=== PATIENT | female | born 1990 | race Caucasian/White ===

== ENCOUNTER 2016-06-06 15:57 | Emergency (ER) | payer MEDICAID ==
[2016-06-06 16:17] VITALS: BP 116/76
--- NOTE | 2016-06-06 16:20 | ER Document Report ---
ED Medical Screen (RME) - General Stated Complaint: VAGINAL BLEEDING Time seen by provider: 16:17 Notes: Patient complaints of vaginal bleeding for 3 months straight. Patient states she can feel a lump in her vaginal area and can feel the strings of her IUD. Has not followed up with her [employer]. Patient complains of nausea and vomiting sometimes in the mornings. Denies fever or diarrhea I have greeted and performed a rapid initial assessment of this patient. A comprehensive ED assessment and evaluation of the patient, analysis of test results and completion of the medical decision making process will be conducted by additional ED providers. TRAVEL OUTSIDE OF THE [place] IN LAST 30 DAYS: No - Related Data Allergies/Adverse Reactions: No Known Allergies Allergy (Verified 06/06/16 16:19) Past Medical History Past Surgical History: Reports: Hx Dilation and Curettage, Hx Gynecologic Surgery - d&c - Immunizations Immunizations up to date: Yes Hx Diphtheria, Pertussis, Tetanus Vaccination: Yes Physical Exam - Vital signs Vitals: Temp Pulse Resp BP Pulse Ox 97.6 F 78 20 116/76 100 06/06/16 16:15 06/06/16 16:15 06/06/16 16:15 06/06/16 16:15 06/06/16 16:15 Course - Vital Signs Vital signs: Temp Pulse Resp BP Pulse Ox 97.6 F 78 20 116/76 100 06/06/16 16:15 06/06/16 16:15 06/06/16 16:15 06/06/16 16:15 06/06/16 16:15
[2016-06-06 16:48] LABS: ABSOLUTE EOSINOPHILS # (AUTO) 0.1 10^3/uL (0.0-0.6); ABSOLUTE MONOCYTES (AUTO) 0.5 10^3/uL (0.1-1.4); ABSOLUTE NEUT (AUTO) 3.8 10^3/uL (1.7-8.2); BASOPHILS % (AUTO) 0.4 % (0-2); EOSINOPHILS % (AUTO) 2.2 % (0-6); HEMATOCRIT 34.1 % (36.0-47.0); HEMOGLOBIN 11.9 g/dL (12.0-15.5); HGB HCT DIFFERENCE 1.6; LYMPHOCYTES % (AUTO) 30.4 % (13-45); MEAN CORPUSCULAR HEMOGLOBIN 32.9 pg (27.0-33.4); MEAN CORPUSCULAR HGB CONC 34.9 g/dL (32.0-36.0); MEAN CORPUSCULAR VOLUME 94 fl (80-97); MONOCYTES % (AUTO) 7.9 % (3-13); RED BLOOD COUNT 3.62 10^6/uL (3.72-5.28); RED CELL DISTRIBUTION WIDTH 12.5 % (11.5-14.0); SEGMENTED NEUTROPHILS % (AUTO) 59.1 % (42-78); WHITE BLOOD COUNT 6.4 10^3/uL (4.0-10.5)
[2016-06-06 16:59] LABS: APPEARANCE,URINE CLEAR; BILIRUBIN,URINE NEGATIVE (NEGATIVE); GLUCOSE, URINE NEGATIVE (NEGATIVE); KETONES,URINE NEGATIVE (NEGATIVE); LEUKOCYTE ESTERASE,URINE TRACE (NEGATIVE); NITRITE,URINE NEGATIVE (NEGATIVE); PROTEIN,URINE NEGATIVE (NEGATIVE); URINE SPECIFIC GRAVITY 1.008; UROBILINOGEN,URINE NEGATIVE mg/dL (<2.0)
[2016-06-06 17:05] LABS: ALANINE AMINOTRANSFERASE 15 U/L (9-52); ALBUMIN 4.4 g/dL (3.5-5.0); ALKALINE PHOSPHATASE 55 U/L (38-126); ANION GAP 10 (5-19); ASPARTATE AMINO TRANSFERASE 18 U/L (14-36); BILIRUBIN,TOTAL 0.4 mg/dL (0.2-1.3); BLOOD UREA NITROGEN 7 mg/dL (7-20); CALCIUM 9.5 mg/dL (8.4-10.2); CARBON DIOXIDE 26 mmol/L (22-30); CHLORIDE 106 mmol/L (98-107); CREATININE RESULT 0.68 mg/dL (0.52-1.25); GLUCOSE 87 mg/dL (75-110); POTASSIUM 4.1 mmol/L (3.6-5.0); SODIUM 141.7 mmol/L (137-145)
--- NOTE | 2016-06-06 18:32 | ER Document Report ---
ED GI/ - General Mode of Arrival: Ambulatory Information source: Patient TRAVEL OUTSIDE OF THE [place] IN LAST 30 DAYS: No <YUMIKO ADAMS - Last Filed: 06/06/16 22:06> <HECTOR KEMP - Last Filed: 06/06/16 22:44> - General Chief Complaint: Vaginal Bleeding Stated Complaint: VAGINAL BLEEDING Notes: Patient is a 26 year old female that presents to the emergency department today with complaints of an IUD complaint with vaginal bleeding according to triage paperwork. Upon entry into room the patient is sleeping and uncooperative with history. (YUMIKO ADAMS) - Related Data Allergies/Adverse Reactions: No Known Allergies Allergy (Verified 06/06/16 16:19) Past Medical History - General Information source: [facility], [facility] Records - Social History Smoking Status: Current Every Day Smoker Cigarette use (# per day): Yes Chew tobacco use (# tins/day): No Frequency of alcohol use: None Drug Abuse: None Lives with: Family Family History: Reviewed & Not Pertinent Patient has suicidal ideation: No Patient has homicidal ideation: No - Medical History Medical History: Negative Past Surgical History: Reports: Hx Dilation and Curettage, Hx Gynecologic Surgery - d&c - Immunizations Immunizations up to date: Yes Hx Diphtheria, Pertussis, Tetanus Vaccination: Yes <YUMIKO ADAMS - Last Filed: 06/06/16 22:06> Review of Systems - Review of Systems -: Yes ROS unobtainable due to patient's medical condition - uncooperative, falls asleep <YUMIKO ADAMS - Last Filed: 06/06/16 22:06> Physical Exam - Vital signs Interpretation: Normal - General In distress: None - HEENT Head: Normocephalic, Atraumatic - Extremities General upper extremity: Normal ROM General lower extremity: Normal ROM, Normal weight bearing <HECTOR KEMP - Last Filed: 06/06/16 22:44> - Vital signs Vitals: Temp Pulse Resp BP Pulse Ox 97.6 F 78 20 116/76 100 06/06/16 16:15 06/06/16 16:15 06/06/16 16:15 06/06/16 16:15 06/06/16 16:15 Course - Laboratory Result Diagrams: 06/06/16 16:30 06/06/16 16:30 <YUMIKO ADAMS - Last Filed: 06/06/16 22:06> - Laboratory Result Diagrams: 06/06/16 16:30 06/06/16 16:30 <HECTOR KEMP - Last Filed: 06/06/16 22:44> - Re-evaluation Re-evalutation: 06/06/16 Patient is a 18-year-old female who presented to the emergency department for vaginal bleeding. Patient was unable to give history. Went to the room twice to see her. Attempted to have a conversation with her multiple times in the patient did not want to wake up. Patient then told nurse that she just wanted to be discharged. This is after she did refuse ultrasound to look at IUD placement. Discharge instructions were preprinted for vaginal bleeding. Patient then wanted to see me again. Went to talk to patient who tells me that she wants to see a different doctor. Inform the patient that there is not another physician available at this time. Patient began swearing and yelling, which she has been doing to the staff for the last hour. Patient's family attempted to calm her down in the room patient is yelling and swearing. Explained to patient that I would not be standing there and continued to be yelled that. Patient was escorted to the waiting room by security after she would not stop yelling and cursing. (HECTOR KEMP) - Vital Signs Vital signs: Temp Pulse Resp BP Pulse Ox 97.6 F 78 20 116/76 100 06/06/16 16:15 06/06/16 16:15 06/06/16 16:15 06/06/16 16:15 06/06/16 16:15 - Laboratory Laboratory results interpreted by me: 06/06/16 06/06/16 16:30 16:30 RBC 3.62 L Hgb 11.9 L Hct 34.1 L Ur Leukocyte Esterase TRACE H Discharge <YUMIKO ADAMS - Last Filed: 06/06/16 22:06> <HECTOR KEMP - Last Filed: 06/06/16 22:44> - Discharge Clinical Impression: Vaginal bleeding Condition: Stable Disposition: HOME, SELF-CARE Additional Instructions: Please follow-up with your doctor regarding your IUD. Referrals: MARK RAMSEY PA-C [Primary Care Provider] - Follow up as needed Scribe Attestation: 06/06/16 22:43 I personally performed the services described in the documentation, reviewed and edited the documentation which was dictated to the scribe in my presence, and it accurately records my words and actions. (HECTOR KEMP) Scribe Documentation - Scribe Written by Melissa:: Melissa Arroyo, 06/06/2016 2208 acting as scribe for :: Andrew <YUMIKO ADAMS - Last Filed: 06/06/16 22:06>
--- NOTE | 2016-06-06 18:47 | ER Document Report ---
ED GI/ - General Chief Complaint: Vaginal Bleeding Stated Complaint: VAGINAL BLEEDING TRAVEL OUTSIDE OF THE [place] IN LAST 30 DAYS: No - Related Data Allergies/Adverse Reactions: No Known Allergies Allergy (Verified 06/06/16 16:19) Past Medical History - General Last Menstrual Period: >5 years - Social History Smoking Status: Current Every Day Smoker Chew tobacco use (# tins/day): No Frequency of alcohol use: None Drug Abuse: None Family History: Reviewed & Not Pertinent Patient has suicidal ideation: No Patient has homicidal ideation: No Renal/ Medical History: Denies: Hx Peritoneal Dialysis Past Surgical History: Reports: Hx Dilation and Curettage, Hx Gynecologic Surgery - d&c - Immunizations Immunizations up to date: Yes Hx Diphtheria, Pertussis, Tetanus Vaccination: Yes Physical Exam - Vital signs Vitals: Temp Pulse Resp BP Pulse Ox 97.6 F 78 20 116/76 100 06/06/16 16:15 06/06/16 16:15 06/06/16 16:15 06/06/16 16:15 06/06/16 16:15 Course - Vital Signs Vital signs: Temp Pulse Resp BP Pulse Ox 97.6 F 78 20 116/76 100 06/06/16 16:15 06/06/16 16:15 06/06/16 16:15 06/06/16 16:15 06/06/16 16:15 - Laboratory Result Diagrams: 06/06/16 16:30 06/06/16 16:30 Laboratory results interpreted by me: 06/06/16 06/06/16 16:30 16:30 RBC 3.62 L Hgb 11.9 L Hct 34.1 L Ur Leukocyte Esterase TRACE H Discharge - Discharge Clinical Impression: Vaginal bleeding Condition: Stable Disposition: HOME, SELF-CARE Additional Instructions: Please follow-up with your doctor regarding her IUD. Referrals: MARK RAMSEY PA-C [Primary Care Provider] - Follow up as needed
== END 2016-06-06 19:40 | disposition home or self-care (01) ==
LOC: ER 15:57
DX: N93.8 Other specified abnormal uterine and vaginal bleeding (principal); F17.210 Nicotine dependence, cigarettes, uncomplicated; Z97.5 Presence of (intrauterine) contraceptive device
CPT/HCPCS: 36415; 80053; 81001; 84702; 85025; 99284

== ENCOUNTER 2018-03-15 16:48 | Emergency (ER) | payer SELFPAY ==
[2018-03-15] MEDS ORDERED: KETOROLAC TROMETHAMINE 60 MG/2 ML SDV IM ONE (17:29)
[2018-03-15 18:13] LABS: APPEARANCE,URINE CLEAR; BILIRUBIN,URINE NEGATIVE (NEGATIVE); COLOR,URINE YELLOW; GLUCOSE, URINE NEGATIVE (NEGATIVE); KETONES,URINE NEGATIVE (NEGATIVE); LEUKOCYTE ESTERASE,URINE LARGE (NEGATIVE); NITRITE,URINE NEGATIVE (NEGATIVE); PROTEIN,URINE NEGATIVE (NEGATIVE); UROBILINOGEN,URINE NEGATIVE mg/dL (<2.0)
[2018-03-15] MEDS ORDERED: SULFAMETHOXAZOLE/TRIMETHOPRIM 800-160 MG TABLET PO ONE (18:19)
--- NOTE | 2018-03-15 18:26 | ER Document Report ---
ED General - General Chief Complaint: Back Pain Stated Complaint: URINARY PAIN Time Seen by Provider: 03/15/18 17:26 TRAVEL OUTSIDE OF THE [place] IN LAST 30 DAYS: No - HPI Patient complains to provider of: Back pain dysuria Notes: Patient coming in for suprapubic abdominal pain along with dysuria. Patient states she thinks he may have a urinary tract infection. Patient denies any fever chills nausea vomiting diarrhea. Patient denies any vaginal discharge. - Related Data Allergies/Adverse Reactions: No Known Allergies Allergy (Verified 03/15/18 16:49) Past Medical History - Social History Smoking Status: Current Every Day Smoker Frequency of alcohol use: None Drug Abuse: Marijuana Family History: Reviewed & Not Pertinent Patient has suicidal ideation: No Patient has homicidal ideation: No Renal/ Medical History: Denies: Hx Peritoneal Dialysis Past Surgical History: Reports: Hx Dilation and Curettage, Hx Gynecologic Surgery - d&c - Immunizations Immunizations up to date: Yes Hx Diphtheria, Pertussis, Tetanus Vaccination: Yes Review of Systems - Review of Systems Constitutional: No symptoms reported EENT: No symptoms reported Cardiovascular: No symptoms reported Respiratory: No symptoms reported Gastrointestinal: Abdominal pain Genitourinary: Dysuria Female Genitourinary: No symptoms reported Musculoskeletal: No symptoms reported Skin: No symptoms reported Hematologic/Lymphatic: No symptoms reported Neurological/Psychological: No symptoms reported -: Yes All other systems reviewed and negative Physical Exam - Vital signs Vitals: Temp Pulse BP Pulse Ox 99.3 F 103 H 118/68 97 03/15/18 17:05 03/15/18 17:05 03/15/18 17:05 03/15/18 17:05 Interpretation: Normal - General General appearance: Appears well, Alert - HEENT Head: Normocephalic, Atraumatic Eyes: Normal Pupils: PERRL - Respiratory Respiratory status: No respiratory distress Chest status: Nontender Breath sounds: Normal Chest palpation: Normal - Cardiovascular Rhythm: Regular Heart sounds: Normal auscultation Murmur: No - Abdominal Inspection: Normal Distension: No distension Bowel sounds: Normal Tenderness: Nontender Organomegaly: No organomegaly - Back Back: Normal, Nontender - Extremities General upper extremity: Normal inspection, Nontender, Normal color, Normal ROM , Normal temperature General lower extremity: Normal inspection, Nontender, Normal color, Normal ROM , Normal temperature, Normal weight bearing. No: Leia's sign - Neurological Neuro grossly intact: Yes Cognition: Normal Orientation: AAOx4 [place] Coma Scale Eye Opening: Spontaneous Joahnna Coma Scale Verbal: Oriented [place] Coma Scale Motor: Obeys Commands [place] Coma Scale Total: 15 Speech: Normal Motor strength normal: LUE, RUE, LLE, RLE Sensory: Normal - Psychological Associated symptoms: Normal affect, Normal mood - Skin Skin Temperature: Warm Skin Moisture: Dry Skin Color: Normal Course - Re-evaluation Re-evalutation: 03/15/18 21:08 Patient with uncomplicated UTI. Urine analysis will be sent for culture patient will be started on Bactrim. - Vital Signs Vital signs: Temp Pulse Resp BP Pulse Ox 98.8 F 91 110/68 99 03/15/18 19:00 03/15/18 19:00 03/15/18 19:00 03/15/18 19:00 - Laboratory Laboratory results interpreted by me: 03/15/18 17:30 Urine Blood MODERATE H Ur Leukocyte Esterase LARGE H Discharge - Discharge Clinical Impression: UTI (urinary tract infection) Qualifiers: Urinary tract infection type: acute cystitis Hematuria presence: with hematuria Qualified Code(s): N30.01 - Acute cystitis with hematuria Condition: Good Disposition: HOME, SELF-CARE Instructions: Ice Packs ([facility]), Low Back Pain ([facility]), Trimethoprim-Sulfa ([facility]), Urinary Tract Infection ([facility]) Additional Instructions: Your urinalysis does show signs of urinary tract infection. I would recommend taking the antibiotic as prescribed. Return to ER symptoms worsen follow-up with your primary care physician. Tylenol Motrin for pain control along with the Pyridium prescribed. Prescriptions: Ibuprofen [Motrin 600 mg Tablet] 600 mg PO Q8HP PRN #21 tablet PRN Reason: Phenazopyridine HCl [Pyridium 200 mg Tablet] 200 mg PO TID #20 tablet Sulfamethoxazole/Trimethoprim [Bactrim Ds Tablet] 1 each PO BID #20 tablet Forms: Return to Work Referrals: MARK RAMSEY PA-C [Primary Care Provider] - Follow up as needed
[2018-03-15 19:04] VITALS: BP 110/68
== END 2018-03-15 19:05 | disposition home or self-care (01) ==
LOC: ER 16:48
DX: N30.01 Acute cystitis with hematuria (principal); M54.9 Dorsalgia, unspecified; F17.200 Nicotine dependence, unspecified, uncomplicated
CPT/HCPCS: 99283; 96372; 87086; 81025; 87088; 81001; 87186; J1885

== ENCOUNTER 2020-01-26 13:34 | Emergency (ER) | payer MEDICAID ==
--- NOTE | 2020-01-26 13:55 | ER Document Report ---
ED Medical Screen (RME) - General Chief Complaint: Abdominal Pain Stated Complaint: ABDOMINAL PAIN Time Seen by Provider: 01/26/20 13:51 Primary Care Provider: ERICH TRUJILLO MD [Primary Care Provider] - Follow up as needed Mode of Arrival: Ambulatory Information source: Patient Notes: 29-year-old female patient presents emergency department chief complaint of no bowel movement for 2 weeks. She reports she has tried milk of magnesia, magnesium citrate, MiraLAX and 2 enemas. She states she has had no results. She reports she has some blood from her rectum. Denies any history of GI bleeds or hemorrhoids that she is aware of. Denies any fever, chills, nausea, vomiting. Reports she has occasional constipation but never anything like this. No history of any abdominal surgeries. Abdomen firm, mildly tender. I have greeted and performed a rapid initial assessment of this patient. A comprehensive ED assessment and evaluation of the patient, analysis of test results and completion of the medical decision making process will be conducted by additional ED providers. I have specifically instructed the patient or family members with the patient to immediately return to any nursing staff should anything change in the patient's condition or with their chief complaint. TRAVEL OUTSIDE OF THE [place] IN LAST 30 DAYS: No - Related Data Allergies/Adverse Reactions: No Known Allergies Allergy (Verified 03/15/18 16:49) Past Medical History Renal/ Medical History: Denies: Hx Peritoneal Dialysis Past Surgical History: Reports: Hx Dilation and Curettage, Hx Gynecologic Surgery - d&c - Immunizations Immunizations up to date: Yes Hx Diphtheria, Pertussis, Tetanus Vaccination: Yes Physical Exam - Vital signs Vitals: Temp Pulse Resp BP Pulse Ox 98.1 F 106 H 16 121/84 100 01/26/20 13:40 01/26/20 13:40 01/26/20 13:40 01/26/20 13:40 01/26/20 13:40 Course - Vital Signs Vital signs: Temp Pulse Resp BP Pulse Ox 98.1 F 106 H 16 121/84 100 01/26/20 13:40 01/26/20 13:40 01/26/20 13:40 01/26/20 13:40 01/26/20 13:40 Doctor's Discharge - Discharge Referrals: ERICH TRUJILLO MD [Primary Care Provider] - Follow up as needed
--- NOTE | 2020-01-26 14:20 | RADIOLOGY REPORT (SQ) ---
EXAM DESCRIPTION: KUB/ABDOMEN (SINGLE VIEW) IMAGES COMPLETED DATE/TIME: 01/26/2020 2:09 pm REASON FOR STUDY: no BM x2 weeks COMPARISON: None. NUMBER OF VIEWS: One view. TECHNIQUE: Supine radiographic image of the abdomen acquired. LIMITATIONS: None. FINDINGS: BOWEL GAS PATTERN: Normal bowel gas pattern. No dilated loops. CALCIFICATIONS: No suspicious calcifications. SOFT TISSUES: No gross mass or suggestion of organomegaly. HARDWARE: IUD. BONES: No acute fracture. No worrisome bone lesions. OTHER: No other significant finding. IMPRESSION: NO RADIOGRAPHIC EVIDENCE FOR ACUTE ABDOMINAL DISEASE. TECHNICAL DOCUMENTATION: JOB ID: [id number] 2010 [employer]- All Rights Reserved Reading location - IP/workstation name: [email or web address]
[2020-01-26] MEDS ORDERED: MAGNESIUM CITRATE 296 ML BOTTLE PO ONE (15:47)
--- NOTE | 2020-01-26 15:54 | ER Document Report ---
ED GI/ - General Chief Complaint: Abdominal Pain Stated Complaint: ABDOMINAL PAIN Time Seen by Provider: 01/26/20 13:51 Primary Care Provider: ERICH TRUJILLO MD [Primary Care Provider] - Follow up as needed Mode of Arrival: Ambulatory Notes: 29-year-old woman presents to the emergency department with a history of obstipation for the past 10 days. She notes that she has tried kwok-syv-nzeoexr laxatives with no results. She is also given herself an enema on 2 separate occasions with no results. She has the urge to have a bowel movement however is unable to go. She is taking Percocet on a chronic basis, she has chronic pain management. TRAVEL OUTSIDE OF THE [place] IN LAST 30 DAYS: No - Related Data Allergies/Adverse Reactions: No Known Allergies Allergy (Verified 03/15/18 16:49) Past Medical History - General Information source: Patient - Social History Smoking Status: Unknown if Ever Smoked Family History: Reviewed & Not Pertinent Renal/ Medical History: Denies: Hx Peritoneal Dialysis Past Surgical History: Reports: Hx Dilation and Curettage, Hx Gynecologic Surgery - d&c - Immunizations Immunizations up to date: Yes Hx Diphtheria, Pertussis, Tetanus Vaccination: Yes Review of Systems - Review of Systems Notes: Constitutional: Negative for fever. HENT: Negative for sore throat. Eyes: Negative for visual changes. Cardiovascular: Negative for chest pain. Respiratory: Negative for shortness of breath. Gastrointestinal: See HPI Genitourinary: Negative for dysuria. Musculoskeletal: Negative for back pain. Skin: Negative for rash. Neurological: Negative for headaches, weakness or numbness. 10 point ROS negative except as marked above and in HPI. Physical Exam - Vital signs Vitals: Temp Pulse Resp BP Pulse Ox 98.1 F 106 H 16 121/84 100 01/26/20 13:40 01/26/20 13:40 01/26/20 13:40 01/26/20 13:40 01/26/20 13:40 - Notes Notes: PHYSICAL EXAMINATION: Physical Exam: General: Well-nourished well-developed 29-year-old female in no acute distress HEENT: NC/AT, pupils equal round and reactive to light, MM moist,nares clear, oropharynx clear, airway patent Neck: supple, no adenopathy, no masses. Good range of motion Lungs: clear, no wheezing, no rales no rhonchi CVS: Regular rate and rhythm no murmur gallop or rub Abdomen: Soft, active, nontender, no masses, no hepatosplenomegaly Ext: No edema, clubbing or cyanosis. Neuro: Alert and responsive, moving all 4 extremities on command, cranial nerves intact, no focal findings Skin: Intact no open lesions, no rash PSYCH: Normal mood, normal affect. Course - Re-evaluation Re-evalutation: 01/26/20 15:50 Patient is stable, - Vital Signs Vital signs: Temp Pulse Resp BP Pulse Ox 98.1 F 88 16 130/75 H 100 01/26/20 16:20 01/26/20 16:20 01/26/20 16:20 01/26/20 16:20 01/26/20 16:20 - Diagnostic Test Radiology reviewed: Image reviewed, Reports reviewed Radiology results interpreted by me: 01/26/20 15:52 KUB X-Ray 01/26/20 13:54 IMPRESSION: NO RADIOGRAPHIC EVIDENCE FOR ACUTE ABDOMINAL DISEASE. Discharge - Discharge Clinical Impression: Therapeutic opioid-induced constipation (OIC) Condition: Good Disposition: HOME, SELF-CARE Instructions: Constipation ([facility]) Additional Instructions: You were seen in the emergency department with opioid-induced constipation. Please take a stool softener twice daily, uses a MiraLAX twice daily. Push fluids, increase fiber and follow-up with your doctors as needed. HOME CARE INSTRUCTIONS & INFORMATION: Thank you for choosing us for your medical needs. We hope you're satisfied with the care you received. After you leave, you must properly care for your problem and, at the same time, observe its progress. Any condition can change. Some illnesses can change rapidly over hours or days. If your condition worsens, return to the Emergency Department or see your physician promptly. ABOUT YOUR X-RAYS AND EKG'S: If you had an EKG or X-rays taken, they have been read by the Emergency Physician. The X-rays and EKG's will also be read by a Radiologist or Home Health Clinical Supervisor within 24 hours. If discrepancies are noted, you will be notified by telephone. Please be certain the ED has a correct telephone number & address where you can be reached. Also, realize that some fractures or abnormalities do not show up on initial X-rays. If your symptoms continue, see your physician. ABOUT YOUR LABORATORY TEST: If you had laboratory tests, the results have been reviewed by the Emergency Physician. Some test results (for example cultures) may not be available for several days. You will be contacted if any test result shows you need additional treatment. Please be certain the ED has a correct telephone number and address where you can be reached. ABOUT YOUR MEDICATIONS: You will receive instructions on how to take your medicine on the prescription label you receive. Additional information may be provided by the Pharmacy. If you have questions afterwards, call the ED for clarification or further instructions. Some prescribed medications may cause drowsiness. Do not perform tasks such as driving a car or operating machinery without consulting your Pharmacist. If you feel you need a refill of pain medication, your condition will need re-evaluation. Please do not call for a refill of any medication. ABOUT YOUR SIGNATURE: Signature of this document acknowledges to followin. Understanding that you received emergency treatment and that you may be released before al medical problems are known or treated. Please be certain the ED has a correct phone number & address where you can be reached. 2. Acknowledgement that you will arrange for follow-up care as recommended. 3. Authorization for the Emergency Physician to provide information to your follow-up Physician in order to maximize your care. AT ANY TIME, IF YOUR SYMPTOMS CHANGE SIGNIFICANTLY OR WORSEN OR YOU DEVELOP NEW SYMPTOMS, RETURN TO THE EMERGENCY DEPARTMENT IMMEDIATELY FOR RE-EVALUATION. OUR GOAL IS TO PROVIDE EXCELLENT MEDICAL CARE! WE HOPE THAT WE HAVE MET YOUR EXPECTATIONS DURING YOUR EMERGENCY DEPARTMENT VISIT AND THAT YOU FEEL YOU HAVE RECEIVED EXCELLENT CARE! Prescriptions: Docusate Sodium [Colace 100 mg Capsule] 100 mg PO BID #30 capsule Polyethylene Glycol 3350 [Miralax] 1 cap PO BID PRN #[id number] powder PRN Reason: Referrals: ERICH TRUJILLO MD [Primary Care Provider] - Follow up as needed
[2020-01-26 16:42] VITALS: BP 130/75
== END 2020-01-26 16:20 | disposition home or self-care (01) ==
LOC: ER 13:34
DX: K59.03 Drug induced constipation (principal); T40.2X5A Adverse effect of other opioids, initial encounter; G89.29 Other chronic pain; Z79.891 Long term (current) use of opiate analgesic
CPT/HCPCS: 99283; 74018; J3490

== ENCOUNTER 2020-01-31 18:30 | Inpatient (IN) | payer MEDICAID ==
[2020-01-31] MEDS ORDERED: ACETAMINOPHEN 325 MG TABLET PO ONE (18:52)
[2020-01-31] MEDS ORDERED: NORMAL SALINE 1000 ML 1,000 ML IV ONE (18:53)
--- NOTE | 2020-01-31 19:43 | RADIOLOGY REPORT (SQ) ---
EXAM DESCRIPTION: CHEST 2 VIEWS IMAGES COMPLETED DATE/TIME: 01/31/2020 7:14 pm REASON FOR STUDY: Sepsis protocol COMPARISON: 04/21/2015 EXAM PARAMETERS: NUMBER OF VIEWS: two views TECHNIQUE: Digital Frontal and Lateral radiographic views of the chest acquired. RADIATION DOSE: NA LIMITATIONS: none FINDINGS: LUNGS AND PLEURA: No opacities, masses or pneumothorax. No pleural effusion. MEDIASTINUM AND HILAR STRUCTURES: No masses or contour abnormalities. HEART AND VASCULAR STRUCTURES: Heart normal size. No evidence for failure. BONES: No acute findings. HARDWARE: None in the chest. OTHER: No other significant finding. IMPRESSION: 1. No significant interval changes since the prior examination dated 04/21/2015. No acu te findings. TECHNICAL DOCUMENTATION: JOB ID: [id number] 2010 [employer]- All Rights Reserved Reading location - IP/workstation name: [email or web address]
[2020-01-31] MEDS ORDERED: CEFTRIAXONE 1 GM/D5W RTU 1 GM/50 ML RTUPB IV ONE (20:03)
--- NOTE | 2020-01-31 20:03 | ER Document Report ---
ED Medical Screen (RME) - General Chief Complaint: Fever Stated Complaint: ABDOMINAL PAIN Time Seen by Provider: 01/31/20 18:49 Primary Care Provider: ERICH TRUJILLO MD [Primary Care Provider] - Follow up as needed Mode of Arrival: Wheelchair Information source: Patient Notes: 19-year-old female presents to ED for complaint of severe left-sided pelvic pain. She states this pain has been going on since the beginning of January. She states she had a Pap smear with urine and swabs and everything was negative at that time. She states the pain is not gotten any better and is gotten extremely worse over the last week. She states the pain is a 5 out of 5 at this time. She does have a blood pressure 129/85 temperature of 101.9 pulse of 134 O2 sat of 98. She states she smokes a pack a day does not drink or use any illicit drugs. She states she is on oxycodone 08/06/2024 for the pain. Have ordered a septic work-up due to the fever and pulse. I have spoken with ultrasound and ordered a transvaginal ultrasound for the left pelvic pain with Doppler. I have greeted and performed a rapid initial assessment of this patient. A comprehensive ED assessment and evaluation of the patient, analysis of test results and completion of medical decision making process will be conducted by an additional ED providers. TRAVEL OUTSIDE OF THE [place] IN LAST 30 DAYS: No - Related Data Allergies/Adverse Reactions: No Known Allergies Allergy (Verified 03/15/18 16:49) Past Medical History Renal/ Medical History: Denies: Hx Peritoneal Dialysis Past Surgical History: Reports: Hx Dilation and Curettage, Hx Gynecologic Surgery - d&c - Immunizations Immunizations up to date: Yes Hx Diphtheria, Pertussis, Tetanus Vaccination: Yes Physical Exam - Vital signs Vitals: Temp Pulse Resp BP Pulse Ox 101.9 F H 134 H 20 129/85 H 98 01/31/20 18:57 01/31/20 18:57 01/31/20 18:57 01/31/20 18:57 01/31/20 18:57 Course - Vital Signs Vital signs: Temp Pulse Resp BP Pulse Ox 101.9 F H 134 H 20 129/85 H 98 01/31/20 18:57 01/31/20 18:57 01/31/20 18:57 01/31/20 18:57 01/31/20 18:57 Doctor's Discharge - Discharge Referrals: ERICH TRUJILLO MD [Primary Care Provider] - Follow up as needed
[2020-01-31] MEDS ORDERED: KETOROLAC TROMETHAMINE INJ/PF 30 MG/1 ML SDV IV ONE (20:06)
--- NOTE | 2020-01-31 20:24 | RADIOLOGY REPORT (SQ) ---
EXAM DESCRIPTION: US PELVIS TRANSVAGINAL COMPLETED DATE/TME: 01/31/2020 18:55 CLINICAL HISTORY: left pelvic pain febrile COMPARISON: None. FINDINGS: Transvaginal images of the pelvis were submitted. There is an IUD within the uterus. There is no discrete mass within the uterus. There is a right adnexal complex mass measuring 11.3 x 7.5 cm. The left ovary measures 6.2 x 4.7 cm. There is no sonographic evidence of ovarian torsion. IMPRESSION: Right complex adnexal mass could be secondary to a tubo-ovarian abscess. Other etiologies are not excluded. Recommend follow-up.
--- NOTE | 2020-01-31 20:27 | ER Document Report ---
ED GI/ - General Chief Complaint: Abdominal Pain Stated Complaint: ABDOMINAL PAIN Time Seen by Provider: 01/31/20 18:49 Mode of Arrival: Wheelchair Notes: Patient is a 29-year-old female that comes emergency department for chief complaint of left-sided pelvic pain, fever, chills. She states that she has had some pain in the area for approximately 3 weeks now, she states that this is progressively worsened and over the course of this afternoon it became severe. She denies vomiting, flank pain, dysuria, vaginal discharge, vaginal bleeding. She was noted to have a fever in triage of 101.9. She is sexually active with her significant other. She has an IUD. Past medical history of D&C and chronic back pain on oxycodone following with pain management, denies recreational drugs, denies medical history otherwise. TRAVEL OUTSIDE OF THE [place] IN LAST 30 DAYS: No - Related Data Allergies/Adverse Reactions: No Known Allergies Allergy (Verified 03/15/18 16:49) Past Medical History - General Information source: Patient - Social History Smoking Status: Current Every Day Smoker Frequency of alcohol use: None Drug Abuse: None Lives with: Family Family History: Reviewed & Not Pertinent Renal/ Medical History: Denies: Hx Peritoneal Dialysis Past Surgical History: Reports: Hx Dilation and Curettage, Hx Gynecologic Surgery - d&c - Immunizations Immunizations up to date: Yes Hx Diphtheria, Pertussis, Tetanus Vaccination: Yes Review of Systems - Review of Systems Constitutional: See HPI EENT: No symptoms reported Cardiovascular: No symptoms reported Respiratory: No symptoms reported Gastrointestinal: See HPI Genitourinary: See HPI Female Genitourinary: See HPI Musculoskeletal: No symptoms reported Skin: No symptoms reported Hematologic/Lymphatic: No symptoms reported Neurological/Psychological: No symptoms reported Physical Exam - Vital signs Vitals: Temp Pulse Resp BP Pulse Ox 101.9 F H 133 H 24 H 129/85 H 97 01/31/20 18:47 01/31/20 18:47 01/31/20 18:47 01/31/20 18:47 01/31/20 18:47 - Notes Notes: GENERAL: Alert but ill-appearing. Appears to be uncomfortable HEAD: Normocephalic, atraumatic. EYES: Pupils equal, round, and reactive to light. Extraocular movements intact. ENT: Oral mucosa moist, tongue midline. Oropharynx unremarkable. Airway patent. LUNGS: Clear to auscultation bilaterally, no wheezes, rales, or rhonchi. No respiratory distress. Non-tender chest wall. HEART: Tachycardic, normal rhythm, no murmur ABDOMEN: Very tender in the generalized lower abdomen/pelvic region with some guarding. Mid upper abdomen is nontender. Bowel sounds present throughout. GENITOURINARY: External exam unremarkable, speculum exam showing purulent discharge from the cervix with significant cervical motion tenderness noted. No bleeding. Exam performed with Galdino RN at bedside. EXTREMITIES: Moves all 4 extremities spontaneously. No edema, normal radial and dorsalis pedis pulses bilaterally. No cyanosis. BACK: no cervical, thoracic, lumbar midline tenderness. No saddle anesthesia, normal distal neurovascular exam. Moves all extremities in full range of motion. NEUROLOGICAL: Alert and oriented x3. Normal speech. Cranial nerves II through XII grossly intact. Strength 5/5 in all extremities. PSYCH: Normal affect, normal mood. SKIN: Slightly pale Course - Re-evaluation Re-evalutation: 01/31/20 On my evaluation patient is ill-appearing, tachycardic, febrile, has a lot of tenderness in the entire pelvic region on exam. On pelvic exam she has purulent discharge from the cervix, no bleeding, no other concerning finding. Work-up pending. Patient has already been initiated on Rocephin and Flagyl from triage orders. Patient is receiving IV fluids and Tylenol. Patient was given pain medication to help her undergo the pelvic exam. On evaluation patient is more comfortable, tachycardia is improved, she is not hypotensive, she is calm. CBC shows leukocytosis at 21,000 with elevation of neutrophils but no bandemia. Chemistry nonspecific. test is negative. Urine is nitrite positive but otherwise unremarkable. Gonorrhea and Chlamydia are pending, 4+ white blood cells and 4+ bacteria on wet mount. Chest x-ray unremarkable. Ultrasound showing approximate 11 x 7.5 cm mass which could be a tubo-ovarian abscess. Based on patient's clinical presentation I do suspect a tubo-ovarian abscess. Added doxycycline IV. Discussed with patient, initially she was considering going home, she got up, she had severe pain, I discussed all the concerns about her situation, after that she agreed to stay. 01/31/20 22:[address] Tian, patient accepted to [employer], labor and delivery floor. Patient states understanding and agreement. - Vital Signs Vital signs: Temp Pulse Resp BP Pulse Ox 100.4 F 134 H 20 122/94 H 97 02/01/20 04:21 02/01/20 04:21 02/01/20 04:21 02/01/20 04:21 02/01/20 04:21 - Laboratory Result Diagrams: 01/31/20 20:18 01/31/20 20:18 Laboratory results interpreted by me: 01/31/20 01/31/20 01/31/20 20:18 20:18 21:14 WBC 21.4 H RBC 3.40 L Hgb 10.4 L Hct 30.8 L Plt Count 611 H Seg Neuts % (Manual) 83 H Lymphocytes % (Manual) 9 L Abs Neuts (Manual) 17.8 H Abs Monocytes (Manual) 1.7 H Sodium 133.7 L Chloride 97 L BUN 5 L Creatinine 0.50 L Alkaline Phosphatase 221 H Urine Blood SMALL H Urine Nitrite POSITIVE H Ur Leukocyte Esterase SMALL H Discharge - Discharge Clinical Impression: Tubo-ovarian abscess, Tachycardia Fever Qualifiers: Fever type: unspecified Qualified Code(s): R50.9 - Fever, unspecified Leukocytosis Qualifiers: Leukocytosis type: unspecified Qualified Code(s): D72.829 - Elevated white blood cell count, unspecified Condition: Stable Disposition: ADMITTED INPATIENT Admitting Provider: [facility] Unit Admitted: Labor and Delivery
[2020-01-31] MEDS ORDERED: METRONIDAZOLE 500 MG/NS RTU 500 MG/100 ML RTUPB IV ONE (20:30)
[2020-01-31] MEDS ORDERED: NORMAL SALINE 500 ML IV ONE (20:32)
[2020-01-31] MEDS ORDERED: DOXYCYCLINE HYCLATE INJ 100 MG VIAL IV ONE (20:34)
[2020-01-31] MEDS ORDERED: MORPHINE SULFATE 10 MG/ML INJ IV ONE (20:35)
[2020-01-31 20:54] LABS: VENOUS BLOOD BASE EXCESS 2.7 mmol/L; VENOUS BLOOD HCO3 28.1 mmol/L (20-32); VENOUS BLOOD PCO2 46.4 mmHg (35-63); VENOUS BLOOD PH 7.4 (7.30-7.42)
[2020-01-31 21:01] LABS: HEMATOCRIT 30.8 % (36.0-47.0); HEMOGLOBIN 10.4 g/dL (12.0-15.5); MEAN CORPUSCULAR HEMOGLOBIN 30.6 pg (27.0-33.4); MEAN CORPUSCULAR HGB CONC 33.8 g/dL (32.0-36.0); MEAN CORPUSCULAR VOLUME 91 fl (80-97); PLATELET COUNT 611 10^3/uL (150-450); RED CELL DISTRIBUTION WIDTH 12.8 % (11.5-14.0); WHITE BLOOD COUNT 21.4 10^3/uL (4.0-10.5)
[2020-01-31 21:17] LABS: ALBUMIN 3.5 g/dL (3.5-5.0); ALKALINE PHOSPHATASE 221 U/L (38-126); ANION GAP 12 (5-19); ASPARTATE AMINO TRANSFERASE 18 U/L (14-36); BILIRUBIN,DIRECT 0.3 mg/dL (0.0-0.4); BILIRUBIN,TOTAL 0.7 mg/dL (0.2-1.3); BLOOD UREA NITROGEN 5 mg/dL (7-20); CALCIUM 8.8 mg/dL (8.4-10.2); CARBON DIOXIDE 25 mmol/L (22-30); CHLORIDE 97 mmol/L (98-107); GLUCOSE 103 mg/dL (75-110); POTASSIUM 4.2 mmol/L (3.6-5.0); TOTAL PROTEIN 7.3 g/dL (6.3-8.2)
[2020-01-31 21:23] LABS: ABSOLUTE LYMPHOCYTES# (MANUAL) 1.9 10^3/uL (0.5-4.7); ABSOLUTE MONOCYTES # (MANUAL) 1.7 10^3/uL (0.1-1.4); BASOPHILS % (MANUAL) 0 % (0-2); EOSINOPHILS % (MANUAL) 0 % (0-6); LYMPHOCYTES % (MANUAL) 9 % (13-45); MONOCYTES % (MANUAL) 8 % (3-13); SEGMENTED NEUTROPHILS % (MAN) 83 % (42-78); TOTAL CELLS COUNTED 100
[2020-01-31 21:25] LABS: APPEARANCE,URINE CLEAR; BILIRUBIN,URINE NEGATIVE (NEGATIVE); COLOR,URINE YELLOW; GLUCOSE, URINE NEGATIVE (NEGATIVE); KETONES,URINE NEGATIVE (NEGATIVE); LEUKOCYTE ESTERASE,URINE SMALL (NEGATIVE); NITRITE,URINE POSITIVE (NEGATIVE); PROTEIN,URINE NEGATIVE (NEGATIVE); URINE SPECIFIC GRAVITY 1.005; UROBILINOGEN,URINE NEGATIVE mg/dL (<2.0)
[2020-01-31 21:25] LABS: PLATELET CLUMPS PRESENT; PLATELET COMMENT INCREASED; RBC MORPHOLOGY COMMENT NORMO-CYTIC/CHROMIC
[2020-01-31 21:38] LABS: BACTERIA (WET MOUNT) 4+ BACTERIA SEEN; EPITHELIALS (WET MOUNT) 3+ EPITHELIALS SEEN; T.VAGINALIS (WET MOUNT) NO TRICHOMONAS SEEN; WBCS (WET MOUNT) 4+ WBCS SEEN; YEAST (WET MOUNT) NO YEAST SEEN
[2020-01-31 22:54] LABS: CHLAM PCR NOT DETECTED (NOT DETECT)
[2020-02-01] MEDS ORDERED: IBUPROFEN 800 MG TABLET ONE (00:16)
[2020-02-01] MEDS: IBUPROFEN 800 MG TABLET PO SCH ×3 (00:19→17:48)
[2020-02-01] MEDS ORDERED: DEXTROSE 5%-LACTATED RINGERS 1,000 ML IV PRN (00:30)
[2020-02-01] MEDS ORDERED: AMPICILLIN SOD INJ 2 GM VIAL IV PRN (00:34)
[2020-02-01] MEDS ORDERED: GENTAMICIN SULFATE INJ 80 MG/2 ML VIAL IV PRN (00:41)
[2020-02-01] MEDS ORDERED: ACETAMINOPHEN 325 MG TABLET PO PRN (00:42)
[2020-02-01] MEDS ORDERED: AMPICILLIN SOD INJ 2 GM VIAL ONE ×2 (00:50→06:13)
[2020-02-01] MEDS: AMPICILLIN SODIUM 2 GM in NORMAL SALINE 100 ML IV SCH ×4 (00:57→21:01)
[2020-02-01] MEDS: GENTAMICIN SULFATE IV SCH ×3 (01:33→18:54)
[2020-02-01] MEDS: DEXTROSE 5% IV SCH ×3 (01:33→18:54)
[2020-02-01] MEDS: WATER IV SCH ×3 (01:33→18:54)
[2020-02-01] MEDS: OXYCODONE-ACETAMINOPHEN 5-325 MG TABLET PO PRN ×3 (01:53→20:55)
[2020-02-01] MEDS: CLINDAMYCIN 900 MG/D5W RTU 900 MG/50 ML RTUPB IV SCH ×3 (02:33→17:46)
--- NOTE | 2020-02-01 03:02 | PDOC H&P ---
History of Present Illness Admission Date/PCP: 01/31/20 22:35 ERICH TRUJILLO MD Patient complains of: left sided pain for 3 weeks and fever and chills History of Present Illness: RY GILES I is a 29 year old female admitted from the ER with c/o left emy ed pain with fever and chills. Pt denies change in bowel or bladder habits, Noted to have a mass in the right adnexa (see US). Pt also noted to have a UTI. Past Medical History Gynecological Infection: Yes Gynecological History Note: pt reported recent pap htat was neg and has neg GC and chlamydia here Past Surgical History Past Surgical History: Reports: None Social History Smoking Status: Current Every Day Smoker Family History Family History: None, Reviewed & Not Pertinent Parental Family History Reviewed: Yes Children Family History Reviewed: Yes Sibling(s) Family History Reviewed.: Yes Medication/Allergy Home Medications: Amox Tr/Potassium Clavulanate [Augmentin 875-125 mg Tablet] 1 tab PO BID #20 tablet 03/09/13 Methocarbamol [Robaxin 750 mg Tablet] 750 mg PO ASDIR PRN #40 tablet 06/26/13 Oxycodone HCl/Acetaminophen [Percocet 5-325 mg Tablet] 1 tab PO Q4H PRN #25 tablet 06/26/13 Promethazine HCl [Phenergan 25 mg Tablet] 1 - 2 tab PO Q6H PRN #15 tablet 06/26/13 Ciprofloxacin HCl [Cipro 500 mg Tablet] 500 mg PO BID #20 tablet 04/21/15 Oxycodone HCl/Acetaminophen [Percocet 5-325 mg Tablet] 1 - 2 tab PO ASDIR PRN #25 tablet 04/21/15 Promethazine HCl [Phenergan 25 mg Tablet] 25 mg PO Q6H PRN #15 tablet 04/21/15 Ibuprofen [Motrin 600 mg Tablet] 600 mg PO Q8HP PRN #21 tablet 03/15/18 Phenazopyridine HCl [Pyridium 200 mg Tablet] 200 mg PO TID #20 tablet 03/15/18 Sulfamethoxazole/Trimethoprim [Bactrim Ds Tablet] 1 each PO BID #20 tablet 03/15/18 Docusate Sodium [Colace 100 mg Capsule] 100 mg PO BID #30 capsule 01/26/20 Polyethylene Glycol 3350 [Miralax] 1 cap PO BID PRN #527 powder 01/26/20 Allergies/Adverse Reactions: No Known Allergies Allergy (Verified 03/15/18 16:49) Physical Exam - Physical Exam Vital Signs: Temp Pulse Resp BP Pulse Ox 97.9 F 104 H 18 113/67 98 02/01/20 00:13 02/01/20 00:13 02/01/20 00:13 02/01/20 00:13 02/01/20 00:13 Intake & Output 01/30/20 01/31/20 02/01/20 06:59 06:59 06:59 Intake Total 1851.875 Balance 1851.875 Weight 50.4 kg General appearance: PRESENT: mild distress Respiratory exam: PRESENT: clear to auscultation qamar Cardiovascular exam: PRESENT: RRR GI/Abdominal exam: PRESENT: other Result Laboratory Results: 01/31/20 20:18 01/31/20 20:18 01/31/20 01/31/20 01/31/20 20:18 20:18 20:18 WBC 21.4 H RBC 3.40 L Hgb 10.4 L Hct 30.8 L MCV 91 MCH 30.6 MCHC 33.8 RDW 12.8 Plt Count 611 H Seg Neutrophils % Not Reportable VBG pH 7.40 VBG pCO2 46.4 VBG HCO3 28.1 VBG Base Excess 2.7 Sodium 133.7 L Potassium 4.2 Chloride 97 L Carbon Dioxide 25 Anion Gap 12 BUN 5 L Creatinine 0.50 L Est GFR ( Amer) > 60 Glucose 103 Lactic Acid Calcium 8.8 Total Bilirubin 0.7 AST 18 Alkaline Phosphatase 221 H Total Protein 7.3 Albumin 3.5 Serum HCG, Qual Urine Color Urine Appearance Urine pH Ur Specific [place] Urine Protein Urine Glucose (UA) Urine Ketones Urine Blood Urine Nitrite Ur Leukocyte Esterase Urine WBC (Auto) Urine RBC (Auto) 01/31/20 01/31/20 01/31/20 20:18 20:18 21:14 WBC RBC Hgb Hct MCV MCH MCHC RDW Plt Count Seg Neutrophils % VBG pH VBG pCO2 VBG HCO3 VBG Base Excess Sodium Potassium Chloride Carbon Dioxide Anion Gap BUN Creatinine Est GFR ( Amer) Glucose Lactic Acid 0.7 Calcium Total Bilirubin AST Alkaline Phosphatase Total Protein Albumin Serum HCG, Qual NEGATIVE Urine Color YELLOW Urine Appearance CLEAR Urine pH 7.0 Ur Specific [place] 1.005 Urine Protein NEGATIVE Urine Glucose (UA) NEGATIVE Urine Ketones NEGATIVE Urine Blood SMALL H Urine Nitrite POSITIVE H Ur Leukocyte Esterase SMALL H Urine WBC (Auto) 11 Urine RBC (Auto) 0 01/31/20 23:15 WBC RBC Hgb Hct MCV MCH MCHC RDW Plt Count Seg Neutrophils % VBG pH VBG pCO2 VBG HCO3 VBG Base Excess Sodium Potassium Chloride Carbon Dioxide Anion Gap BUN Creatinine Est GFR ( Amer) Glucose Lactic Acid 1.1 Calcium Total Bilirubin AST Alkaline Phosphatase Total Protein Albumin Serum HCG, Qual Urine Color Urine Appearance Urine pH Ur Specific [place] Urine Protein Urine Glucose (UA) Urine Ketones Urine Blood Urine Nitrite Ur Leukocyte Esterase Urine WBC (Auto) Urine RBC (Auto) Impressions: Chest X-Ray 01/31/20 18:53 IMPRESSION: 1. No significant interval changes since the prior examination dated 04/21/2015. No acute findings. Transvaginal US 01/31/20 18:55 IMPRESSION: Right complex adnexal mass could be secondary to a tubo-ovarian abscess. Other etiologies are not excluded. Recommend follow-up. Assessment & Plan - Diagnosis (2) Leukocytosis Qualifiers: Leukocytosis type: unspecified Qualified Code(s): D72.829 - Elevated white blood cell count, unspecified - Time Time Spent: 30 to 50 Minutes Medications reviewed and adjusted accordingly: Yes Anticipated Discharge Disposition: Home, Self Care Anticipated Discharge Timeframe: within 72 hours - Plan Summary Plan Summary: IV antibiotic for 48 hours
[2020-02-01] MEDS ORDERED: OXYCODONE-ACETAMINOPHEN 5-325 MG TABLET PO ONE (04:15)
--- NOTE | 2020-02-01 06:07 | RADIOLOGY REPORT (SQ) ---
Ultrasound of the pelvis: 02/01/2020 5:01 AM CDT HISTORY: 29-year-old patient with concern for ruptured abscess. TECHNIQUE: Multiple grayscale and color Doppler images of the pelvis were obtained transvaginally. COMPARISON: Pelvic ultrasound from 01/31/2020 FINDINGS: The uterus measures 9.4 x 4.4 cm. The endometrium measures 8-9 mm in thickness. There may be an IUD within the endometrium. No myometrial mass is seen. There is a tubular hypoechoic structure at the right adnexa with low level internal echoes. This measures at least 12.6 x 6.7 cm. This may represent an endometrioma associated with hematosalpinx or tubo-ovarian abscess. Interval follow-up is recommended to exclude an underlying mass. This is slightly ovary is seen measuring at least 3.6 x 4.4 cm. These are more pronounced than on the prior imaging. The left adnexa measures 8.0 x 3.8 x 5.1 cm. This has a similar appearance to the right adnexal structure. These both have low level internal echoes. These have a thickened rim. Arterial and venous waveforms were obtained from both adnexa. No free intraperitoneal fluid is seen within the posterior cul-de-sac. IMPRESSION: Bilateral adnexal tubular structures are seen with low level internal echoes and septations. These may represent tubo-ovarian abscess or endometrioma associated with hematosalpinx. Interval follow-up is also recommended to exclude an underlying mass. This could be evaluated with MRI imaging.
--- NOTE | 2020-02-01 07:48 | EKG REPORT ---
SEVERITY:- ABNORMAL ECG - SINUS TACHYCARDIA LEFT ANTERIOR FASCICULAR BLOCK BORDERLINE T ABNORMALITIES, ANTERIOR LEADS : Confirmed by: Jesse Miller MD 01-Feb-2020 07:47:15
[2020-02-01 11:26] LABS: HEMATOCRIT 34.5 % (36.0-47.0); HEMOGLOBIN 11.8 g/dL (12.0-15.5); MEAN CORPUSCULAR HEMOGLOBIN 30.9 pg (27.0-33.4); MEAN CORPUSCULAR HGB CONC 34.2 g/dL (32.0-36.0); MEAN CORPUSCULAR VOLUME 90 fl (80-97); PLATELET COUNT 553 10^3/uL (150-450); RED BLOOD COUNT 3.82 10^6/uL (3.72-5.28); WHITE BLOOD COUNT 6.7 10^3/uL (4.0-10.5)
[2020-02-01] MEDS ORDERED: MORPHINE SULFATE 10 MG/ML INJ IV ONE ×2 (12:13→18:00)
[2020-02-01] MEDS ORDERED: MORPHINE SULFATE 10 MG/ML INJ ONE (12:20)
--- NOTE | 2020-02-01 12:39 | PDOC PROGRESS REPORT ---
Subjective Progress Note for:: 02/01/20 Subjective:: Patient reports that pain is the same as when she came to the ER. She has not had medicine over the last 4 to 6 hours for pain as her next dose is currently due. Presently she states the pain is 5 out of 5. Reports area is lower abdomen but worse on the left. Denies fever chills nausea vomiting or bowel complaints. She does report burning when she urinates. Urine appears dark but she cannot identify blood in the urine. No vaginal bleeding Patient is rude, using profanity presently Reason For Visit: TUBO OVARIAN ABSCESS,FEVER,TACHYCARDIA,LUKOCYTOSIS Physical Exam - Physical Exam Vital Signs: Temp Pulse Resp BP Pulse Ox 97.5 F 116 H 16 108/67 99 02/01/20 12:00 02/01/20 12:00 02/01/20 12:00 02/01/20 12:00 02/01/20 12:00 Intake & Output 01/31/20 02/01/20 02/02/20 06:59 06:59 06:59 Intake Total 1901.875 150 Balance 1901.875 150 Weight 50 kg General appearance: PRESENT: mild distress, thin Respiratory exam: PRESENT: clear to auscultation qamar Cardiovascular exam: PRESENT: RRR, +S1, +S2 GI/Abdominal exam: PRESENT: tenderness - In abdomen all quadrants. She is not able to tolerate exam presently because she refuses and states she needs IV pain medication. Psychiatric exam: PRESENT: agitated - CUrsing and refusing MRI or exams until she gets MOre pain mediciation Skin exam: PRESENT: dry, warm Result Laboratory Results: 02/01/20 11:05 01/31/20 20:18 01/31/20 01/31/20 01/31/20 20:18 20:18 20:18 WBC 21.4 H RBC 3.40 L Hgb 10.4 L Hct 30.8 L MCV 91 MCH 30.6 MCHC 33.8 RDW 12.8 Plt Count 611 H Seg Neutrophils % Not Reportable VBG pH 7.40 VBG pCO2 46.4 VBG HCO3 28.1 VBG Base Excess 2.7 Sodium 133.7 L Potassium 4.2 Chloride 97 L Carbon Dioxide 25 Anion Gap 12 BUN 5 L Creatinine 0.50 L Est GFR ( Amer) > 60 Glucose 103 Lactic Acid Calcium 8.8 Total Bilirubin 0.7 AST 18 Alkaline Phosphatase 221 H Total Protein 7.3 Albumin 3.5 Serum HCG, Qual Urine Color Urine Appearance Urine pH Ur Specific [place] Urine Protein Urine Glucose (UA) Urine Ketones Urine Blood Urine Nitrite Ur Leukocyte Esterase Urine WBC (Auto) Urine RBC (Auto) 01/31/20 01/31/20 01/31/20 20:18 20:18 21:14 WBC RBC Hgb Hct MCV MCH MCHC RDW Plt Count Seg Neutrophils % VBG pH VBG pCO2 VBG HCO3 VBG Base Excess Sodium Potassium Chloride Carbon Dioxide Anion Gap BUN Creatinine Est GFR ( Amer) Glucose Lactic Acid 0.7 Calcium Total Bilirubin AST Alkaline Phosphatase Total Protein Albumin Serum HCG, Qual NEGATIVE Urine Color YELLOW Urine Appearance CLEAR Urine pH 7.0 Ur Specific [place] 1.005 Urine Protein NEGATIVE Urine Glucose (UA) NEGATIVE Urine Ketones NEGATIVE Urine Blood SMALL H Urine Nitrite POSITIVE H Ur Leukocyte Esterase SMALL H Urine WBC (Auto) 11 Urine RBC (Auto) 0 01/31/20 02/01/20 02/01/20 23:15 11:05 11:05 WBC 6.7 RBC 3.82 Hgb 11.8 L Hct 34.5 L MCV 90 MCH 30.9 MCHC 34.2 RDW 13.0 Plt Count 553 H Seg Neutrophils % VBG pH VBG pCO2 VBG HCO3 VBG Base Excess Sodium Potassium Chloride Carbon Dioxide Anion Gap BUN Creatinine Est GFR ( Amer) Glucose Lactic Acid 1.1 1.3 Calcium Total Bilirubin AST Alkaline Phosphatase Total Protein Albumin Serum HCG, Qual Urine Color Urine Appearance Urine pH Ur Specific [place] Urine Protein Urine Glucose (UA) Urine Ketones Urine Blood Urine Nitrite Ur Leukocyte Esterase Urine WBC (Auto) Urine RBC (Auto) Impressions: Chest X-Ray 01/31/20 18:53 IMPRESSION: 1. No significant interval changes since the prior examination dated 04/21/2015. No acute findings. Transvaginal US 02/01/20 00:00 IMPRESSION: Bilateral adnexal tubular structures are seen with low level internal echoes and septations. These may represent tubo-ovarian abscess or endometrioma associated with hematosalpinx. Interval follow-up is also recommended to exclude an underlying mass. This could be evaluated with MRI imaging. Assessment & Plan - Diagnosis (1) Leukocytosis Qualifiers: Leukocytosis type: unspecified Qualified Code(s): D72.829 - Elevated white blood cell count, unspecified Is this a current diagnosis for this admission?: Yes (2) Tubo-ovarian abscess Is this a current diagnosis for this admission?: Yes (3) Urinary tract infection Qualifiers: Urinary tract infection type: acute cystitis Is this a current diagnosis for this admission?: Yes - Time Time Spent with patient: Less than 15 minutes - Plan Summary Plan Summary: 29-year-old with tubo-ovarian abscess, urinary tract infection and history of chronic back pain on opiates as an outpatient -Vital signs stable this morning, afebrile. Mild tachycardia. Blood pressure is normal tensive -White blood cell count has decreased from 21 to 6 -Continue current antibiotic regimen -Blood cultures have not returned. I do not see urine culture. We will contact the lab to see if urine culture was ordered -Ultrasounds of pelvis had shown what appears to be bilateral tubo-ovarian abscess. No free fluid was noted. -Recommendation to wait for 48 hours of antibiotic therapy prior to considering surgery if condition not worsening. Will give patient IV medication for pain -And attempt to get MRI which was ordered for this morning
[2020-02-01] MEDS ORDERED: DEXTROSE 40% GEL 15 GM TUBE PO PRN ×2 (20:05)
[2020-02-01] MEDS ORDERED: DEXTROSE 50%-WATER 25 GM/50 ML DISP.SYRIN IV PRN ×2 (20:05)
[2020-02-01] MEDS ORDERED: GLUCAGON,HUMAN RECOMB 1 MG INJ SUBCUT PRN (20:05)
[2020-02-02] MEDS: OXYCODONE-ACETAMINOPHEN 5-325 MG TABLET PO PRN ×6 (01:04→22:55)
[2020-02-02] MEDS: CLINDAMYCIN 900 MG/D5W RTU 900 MG/50 ML RTUPB IV SCH ×3 (01:05→17:47)
[2020-02-02] MEDS: RINGERS SOLUTION,LACTATED 1,000 ML IV PRN (01:09)
[2020-02-02] MEDS: DEXTROSE 5% IV SCH ×3 (03:39→20:09)
[2020-02-02] MEDS: WATER IV SCH ×3 (03:39→20:09)
[2020-02-02] MEDS: GENTAMICIN SULFATE IV SCH ×3 (03:39→20:09)
[2020-02-02] MEDS: AMPICILLIN SODIUM 2 GM in NORMAL SALINE 100 ML IV SCH ×3 (04:54→18:44)
[2020-02-02 07:04] LABS: ABSOLUTE EOSINOPHILS # (AUTO) 0.1 10^3/uL (0.0-0.6); ABSOLUTE LYMPHOCYTES (AUTO) 1.5 10^3/uL (0.5-4.7); ABSOLUTE MONOCYTES (AUTO) 0.7 10^3/uL (0.1-1.4); BASOPHILS % (AUTO) 0.1 % (0-2); EOSINOPHILS % (AUTO) 0.5 % (0-6); HEMATOCRIT 31.8 % (36.0-47.0); HEMOGLOBIN 10.7 g/dL (12.0-15.5); LYMPHOCYTES % (AUTO) 9.3 % (13-45); MEAN CORPUSCULAR HEMOGLOBIN 30.4 pg (27.0-33.4); MEAN CORPUSCULAR HGB CONC 33.5 g/dL (32.0-36.0); MEAN CORPUSCULAR VOLUME 91 fl (80-97); MONOCYTES % (AUTO) 4.3 % (3-13); PLATELET COUNT 528 10^3/uL (150-450); RED BLOOD COUNT 3.51 10^6/uL (3.72-5.28); RED CELL DISTRIBUTION WIDTH 13.2 % (11.5-14.0); SEGMENTED NEUTROPHILS % (AUTO) 85.8 % (42-78); TOTAL CELLS COUNTED % (AUTO) 100 %
[2020-02-02 07:07] LABS: WHITE BLOOD COUNT 16.3 10^3/uL (4.0-10.5)
[2020-02-02 07:24] LABS: ALBUMIN 2.3 g/dL (3.5-5.0); ALKALINE PHOSPHATASE 126 U/L (38-126); ANION GAP 14 (5-19); ASPARTATE AMINO TRANSFERASE 13 U/L (14-36); BILIRUBIN,DIRECT 0.4 mg/dL (0.0-0.4); BILIRUBIN,TOTAL 0.5 mg/dL (0.2-1.3); BLOOD UREA NITROGEN 20 mg/dL (7-20); CALCIUM 7.9 mg/dL (8.4-10.2); CARBON DIOXIDE 18 mmol/L (22-30); CHLORIDE 100 mmol/L (98-107); GLUCOSE 91 mg/dL (75-110); POTASSIUM 4.4 mmol/L (3.6-5.0)
[2020-02-02] MEDS: IBUPROFEN 800 MG TABLET PO SCH ×2 (09:17→17:46)
--- NOTE | 2020-02-02 11:07 | RADIOLOGY REPORT (SQ) ---
EXAM DESCRIPTION: MRI PELVIS COMBO IMAGES COMPLETED DATE/TIME: 02/01/2020 6:56 pm REASON FOR STUDY: pelvic mass COMPARISON: Pelvic ultrasound same date. TECHNIQUE: Multiplanar multisequence imaging performed without and with contrast including axial, sa gittal and coronal T2, axial T, axial gradient fat sat T1, axial, sagittal and coronal fat sat T2 pos t contrast. CONTRAST TYPE AND DOSE: 10 mL Prohance. RENAL FUNCTION: Not indicated. LIMITATIONS: None. FINDINGS: Multiple fluid-filled luminal structures surrounding the uterus, including 1 in the midlin e adjacent to decompressed rectosigmoid colon. No enhancing solid ovarian mass identified. Uterus a nd urinary bladder are normal. No adenopathy. Annular fissure L4-5. IMPRESSION: Multiple dilated luminal structures which cannot exclude abscesses. Potentially amenabl e to CT-guided drainage. COMMENT: Findings discussed with Dr. Tian at 0848 hours. TECHNICAL DOCUMENTATION: JOB ID: [id number] 2010 [employer]- All Rights Reserved Reading location - IP/workstation name: [email or web address]
--- NOTE | 2020-02-02 11:35 | PDOC PROGRESS REPORT ---
Subjective Progress Note for:: 02/02/20 Subjective:: Pt states she is in pain Reason For Visit: TUBO OVARIAN ABSCESS,FEVER,TACHYCARDIA,LUKOCYTOSIS Physical Exam - Physical Exam Vital Signs: Temp Pulse Resp BP Pulse Ox 97.4 F 100 24 H 95/57 L 98 02/02/20 10:00 02/02/20 08:01 02/02/20 08:01 02/02/20 08:01 02/02/20 08:01 Intake & Output 02/01/20 02/02/20 02/03/20 06:59 06:59 06:59 Intake Total 2000.875 1853.750 Output Total 100 100 Balance 2000.875 1753.750 -100 Weight 50 kg 54.2 kg General appearance: PRESENT: no acute distress Cardiovascular exam: PRESENT: RRR GI/Abdominal exam: PRESENT: soft Result Laboratory Results: 02/02/20 06:45 02/02/20 06:45 02/01/20 02/01/20 02/02/20 11:05 11:05 06:45 WBC 6.7 16.3 H D RBC 3.82 3.51 L Hgb 11.8 L 10.7 L Hct 34.5 L 31.8 L MCV 90 91 MCH 30.9 30.4 MCHC 34.2 33.5 RDW 13.0 13.2 Plt Count 553 H 528 H Seg Neutrophils % 85.8 H Sodium Potassium Chloride Carbon Dioxide Anion Gap BUN Creatinine Est GFR ( Amer) Glucose Lactic Acid 1.3 Calcium Total Bilirubin AST Alkaline Phosphatase Total Protein Albumin 02/02/20 06:45 WBC RBC Hgb Hct MCV MCH MCHC RDW Plt Count Seg Neutrophils % Sodium 132.2 L Potassium 4.4 Chloride 100 Carbon Dioxide 18 L Anion Gap 14 BUN 20 Creatinine 1.55 H Est GFR ( Amer) 47 L Glucose 91 Lactic Acid Calcium 7.9 L Total Bilirubin 0.5 AST 13 L Alkaline Phosphatase 126 Total Protein 5.0 L Albumin 2.3 L Impressions: Chest X-Ray 01/31/20 18:53 IMPRESSION: 1. No significant interval changes since the prior examination dated 04/21/2015. No acute findings. Pelvis MRI 02/01/20 00:00 IMPRESSION: Multiple dilated luminal structures which cannot exclude abscesses. Potentially amenable to CT-guided drainage. Transvaginal US 02/01/20 00:00 IMPRESSION: Bilateral adnexal tubular structures are seen with low level internal echoes and septations. These may represent tubo-ovarian abscess or endometrioma associated with hematosalpinx. Interval follow-up is also recommended to exclude an underlying mass. This could be evaluated with MRI imaging. Assessment & Plan - Diagnosis (2) Leukocytosis Qualifiers: Leukocytosis type: unspecified Qualified Code(s): D72.829 - Elevated white blood cell count, unspecified Is this a current diagnosis for this admission?: Yes (3) Urinary tract infection Qualifiers: Urinary tract infection type: acute cystitis Is this a current diagnosis for this admission?: Yes - Time Time Spent with patient: Less than 15 minutes Medications reviewed and adjusted accordingly: Yes Anticipated discharge: Home Anticipated DC Timeframe: within 72 hours - Plan Summary Plan Summary: I spoke with radioogy and plan is to do a CT in the morning and if possible they will attempt to drain the cystic mass. Continue IV antibiotics.
[2020-02-02 22:54] LABS: GENTAMICIN-PEAK 11.9 ug/mL (5.0-10.0)
[2020-02-03] MEDS: AMPICILLIN SODIUM 2 GM in NORMAL SALINE 100 ML IV SCH ×3 (00:02→11:09)
[2020-02-03] MEDS: DEXTROSE 5% IV SCH ×2 (02:29→02:45)
[2020-02-03] MEDS: WATER IV SCH ×2 (02:29→02:45)
[2020-02-03] MEDS: GENTAMICIN SULFATE IV SCH ×2 (02:29→02:45)
[2020-02-03] MEDS: OXYCODONE-ACETAMINOPHEN 5-325 MG TABLET PO PRN ×5 (03:05→20:46)
[2020-02-03] MEDS: RINGERS SOLUTION,LACTATED 1,000 ML IV PRN (05:57)
[2020-02-03] MEDS ORDERED: CLINDAMYCIN 900 MG/D5W RTU 900 MG/50 ML RTUPB IV SCH (06:00)
[2020-02-03 07:20] LABS: ABSOLUTE EOSINOPHILS # (AUTO) 0.1 10^3/uL (0.0-0.6); ABSOLUTE LYMPHOCYTES (AUTO) 1.2 10^3/uL (0.5-4.7); ABSOLUTE MONOCYTES (AUTO) 0.5 10^3/uL (0.1-1.4); BASOPHILS % (AUTO) 0.3 % (0-2); EOSINOPHILS % (AUTO) 0.5 % (0-6); HEMATOCRIT 25.4 % (36.0-47.0); HEMOGLOBIN 8.7 g/dL (12.0-15.5); LYMPHOCYTES % (AUTO) 6.6 % (13-45); MEAN CORPUSCULAR HEMOGLOBIN 30.7 pg (27.0-33.4); MEAN CORPUSCULAR HGB CONC 34.4 g/dL (32.0-36.0); MEAN CORPUSCULAR VOLUME 89 fl (80-97); MONOCYTES % (AUTO) 2.8 % (3-13); PLATELET COUNT 450 10^3/uL (150-450); RED BLOOD COUNT 2.85 10^6/uL (3.72-5.28); RED CELL DISTRIBUTION WIDTH 13.4 % (11.5-14.0); SEGMENTED NEUTROPHILS % (AUTO) 89.8 % (42-78); TOTAL CELLS COUNTED % (AUTO) 100 %; WHITE BLOOD COUNT 17.8 10^3/uL (4.0-10.5)
[2020-02-03 10:46] LABS: INTERNATIONAL RATION (INR) 1.39; PROTHROMBIN TIME 17.2 SEC (11.4-15.4)
[2020-02-03 10:47] LABS: PARTIAL THROMBOPLASTIN TIME 42.3 SEC (23.5-35.8)
[2020-02-03] MEDS: IBUPROFEN 800 MG TABLET PO SCH (11:09)
[2020-02-03 11:13] LABS: GENTAMICIN-TROUGH 9.4 ug/mL (<2.0)
--- NOTE | 2020-02-03 11:50 | PDOC PROGRESS REPORT ---
Subjective Progress Note for:: 02/03/20 Subjective:: no flatus, no BM, + voiding per patient. NPO since last night. Feels bloated Reason For Visit: TUBO OVARIAN ABSCESS,FEVER,TACHYCARDIA,LeUKOCYTOSIS Physical Exam - Physical Exam Vital Signs: Temp Pulse Resp BP Pulse Ox 97.5 F 70 22 H 91/59 L 100 02/03/20 08:00 02/03/20 08:00 02/03/20 08:00 02/03/20 08:00 02/03/20 08:00 Intake & Output 02/02/20 02/03/20 02/04/20 06:59 06:59 06:59 Intake Total 9922.964 4166.750 100 Output Total 100 100 Balance 7982.444 6114.750 100 Weight 54.2 kg 58.6 kg General appearance: PRESENT: no acute distress, well-developed, well-nourished Head exam: PRESENT: atraumatic, normocephalic Respiratory exam: PRESENT: clear to auscultation beck, symmetrical, unlabored Cardiovascular exam: PRESENT: RRR. ABSENT: diastolic murmur, rubs, systolic murmur Pulses: PRESENT: normal dorsalis pedis pul, +2 pedal pulses bilateral Vascular exam: PRESENT: normal capillary refill GI/Abdominal exam: PRESENT: distended, guarding, normal bowel sounds, soft, tenderness - tenderness throughout increased in lower pelvis Rectal exam: PRESENT: deferred Extremities exam: PRESENT: full ROM. ABSENT: calf tenderness, clubbing, pedal edema Musculoskeletal exam: PRESENT: ambulatory Neurological exam: PRESENT: alert, awake, oriented to person, oriented to place, oriented to time, oriented to situation, CN II-XII grossly intact. ABSENT: motor sensory deficit Skin exam: PRESENT: dry, intact, warm. ABSENT: cyanosis, rash Result Laboratory Results: 02/03/20 07:00 02/03/20 10:28 02/03/20 02/03/20 07:00 10:28 WBC 17.8 H RBC 2.85 L Hgb 8.7 L Hct 25.4 L MCV 89 MCH 30.7 MCHC 34.4 RDW 13.4 Plt Count 450 Seg Neutrophils % 89.8 H Creatinine 3.11 H Est GFR ( Amer) 21 L Impressions: Chest X-Ray 01/31/20 18:53 IMPRESSION: 1. No significant interval changes since the prior examination dated 04/21/2015. No acute findings. Pelvis MRI 02/01/20 00:00 IMPRESSION: Multiple dilated luminal structures which cannot exclude abscesses. Potentially amenable to CT-guided drainage. Transvaginal US 02/01/20 00:00 IMPRESSION: Bilateral adnexal tubular structures are seen with low level internal echoes and septations. These may represent tubo-ovarian abscess or endometrioma associated with hematosalpinx. Interval follow-up is also recommended to exclude an underlying mass. This could be evaluated with MRI imaging. Assessment & Plan - Diagnosis (1) Positive blood culture Is this a current diagnosis for this admission?: Yes Plan: possible contaminant as it is only on one blood culture. Awaiting sensitivities. Hospitalist consult for additional advice for this and for elevated Creatinine. Antibiotics changed to Mefoxy/doxy/flagyl due to elevated creatinine (2) Tubo-ovarian abscess Is this a current diagnosis for this admission?: Yes Plan: abx changed to mefoxy/doxy/flagyl for TOA (WBC continued to increase despite abx initiated by admitting provider and also Creatinine elev). GC/CT negative. To CT today for poss drainage Cont IV abx (3) Urinary tract infection Qualifiers: Urinary tract infection type: acute cystitis Is this a current diagnosis for this admission?: Yes Plan: on IV abx for 3 days now. likely adequately treated. Pt with no c/o of UTI at this time. (4) Elevated serum creatinine Is this a current diagnosis for this admission?: Yes Plan: gent already stopped. Beck renal US ordered. Hospitalist consult. Appreciate their assistance with patient. Strict I/O also ordered. - Time Time Spent with patient: 25-34 minutes Medications reviewed and adjusted accordingly: Yes Anticipated discharge: Home Anticipated DC Timeframe: within 72 hours - Inpatient Certification Based on my medical assessment, after consideration of the patient's comorbidities, presenting symptoms, or acuity I expect that the services needed warrant INPATIENT care.: Yes I certify that my determination is in accordance with my understanding of Medicare's requirements for reasonable and necessary INPATIENT services [42 CFR 412.3e].: Yes Medical Necessity: Need Close Monitoring Due to Risk of Patient Decompensation, Need For IV Fluids, Need for Pain Control, Need for IV Antibiotics
[2020-02-03] MEDS ORDERED: CEFOXITIN INJ 2 GM VIAL IV SCH (12:00)
[2020-02-03] MEDS ORDERED: FENTANYL CITRATE INJ/PF 100 MCG/2 ML AMPUL ONE (12:50)
[2020-02-03] MEDS ORDERED: MIDAZOLAM 2 MG/2 ML INJ ONE (12:50)
--- NOTE | 2020-02-03 13:04 | RADIOLOGY REPORT (SQ) ---
EXAM DESCRIPTION: U/S RETROPERITON LTD IMAGES COMPLETED DATE/TIME: 02/03/2020 12:54 pm REASON FOR STUDY: elevated creatinine COMPARISON: 02/01/2020 TECHNIQUE: Dynamic and static grayscale images acquired of the kidneys and bladder and recorded on P ACS. Additional selected color Doppler and spectral images recorded. LIMITATIONS: None. FINDINGS: RIGHT KIDNEY: Normal size. Normal echogenicity. No solid or suspicious masses. No h ydronephrosis. No calcifications. LEFT KIDNEY: Normal size. Normal echogenicity. No solid or suspicious masses. No hydronephrosi s. No calcifications. BLADDER: Debris within the bladder. No masses. OTHER FINDINGS: Free fluid in the right upper quadrant, and left lower quadrant. IMPRESSION: 1. Normal renal ultrasound. Probable bladder debris. 2. Free fluid in the pelvis, right upper quadrant and left lower quadrant. TECHNICAL DOCUMENTATION: JOB ID: [id number] 2010 [employer]- All Rights Reserved Reading location - IP/workstation name: [email or web address]
--- NOTE | 2020-02-03 14:36 | RADIOLOGY REPORT (SQ) ---
EXAM DESCRIPTION: CT ABD/PELVIS ORAL ONLY IMAGES COMPLETED DATE/TIME: 02/03/2020 2:24 pm REASON FOR STUDY: POSSIBLE CYST/ABSCESS COMPARISON: Previous MRI of the pelvis and pelvic ultrasound. Prior CT done in 2016. TECHNIQUE: CT scan of the abdomen and pelvis performed without intravenous or oral contrast. Images reviewed with lung, soft tissue, and bone windows. Reconstructed coronal and sagittal MPR images revi ewed. All images stored on PACS. All CT scanners at this facility use dose modulation, iterative reconstruction, and/or weight based d osing when appropriate to reduce radiation dose to as low as reasonably achievable (ALARA). [facility]: Dose Right [facility]: CareDose [facility]: Dose Right [facility]: Teradose 4D [facility]: Smart [employer] RADIATION DOSE: CT Rad equipment meets quality standard of care and radiation dose reduction techniq ues were employed. CTDIvol: 3.5 mGy. DLP: 183 mGy-cm.mGy. LIMITATIONS: Study is limited by lack of IV contrast and little oral contrast. FINDINGS: LOWER CHEST: Small bilateral pleural effusions and basilar atelectasis. NON-CONTRASTED LIVER, SPLEEN, ADRENALS: There is perihepatic and perisplenic fluid. No focal hepatic splenic lesions. No adrenal masses. PANCREAS: No masses. No peripancreatic inflammatory changes. GALLBLADDER: No identified stones by CT criteria. No inflammatory changes to suggest cholecystitis. RIGHT KIDNEY AND URETER: No suspicious masses. Assessment limited by lack of IV contrast. No signif icant calcifications. No hydronephrosis or hydroureter. LEFT KIDNEY AND URETER: No suspicious masses. Assessment limited by lack of IV contrast. No signifi cant calcifications. No hydronephrosis or hydroureter. AORTA AND RETROPERITONEUM: No aneurysm. No retroperitoneal masses or adenopathy. BOWEL AND PERITONEAL CAVITY: Free peritoneal fluid. Focal fluid collection in the right lower quadra nt an lying between the uterus and rectum. No obstruction. There appears to be thickening of the si gmoid colonic wall. Appendix is not identified. APPENDIX: Not visualized. PELVIS, BLADDER, AND ABDOMINAL WALL:Complex right adnexal mass measuring 5.3 cm. The fluid collectio ns as discussed above. IUD is in place. There is subcutaneous edema. BONES: No significant findings. OTHER: No other significant finding. IMPRESSION: 1. Basilar atelectasis and small pleural effusions. 2. Focal fluid collections in the pelvis anterior to the rectum and posterior the uterus is 2nd gracy ection in the right lower quadrant. 3. Small volume ascites. 4. Thickening of the cecal wall. The appendix is not identified. COMMENT: Quality ID # 436: Final reports with documentation of one or more dose reduction techniques (e.g., Automated exposure control, adjustment of the mA and/or kV according to patient size, use of iterative reconstruction technique) TECHNICAL DOCUMENTATION: JOB ID: [id number] 2010 [employer]- All Rights Reserved Reading location - IP/workstation name: [email or web address]ENTERLetty
--- NOTE | 2020-02-03 15:01 | RADIOLOGY REPORT (SQ) ---
EXAM DESCRIPTION: CT DRAINAGE RETRO/PERITONEAL IMAGES COMPLETED DATE/TIME: 02/03/2020 2:27 pm REASON FOR STUDY: POSSIBLE CYST/ABSCESS COMPARISON: CT done earlier the same day. FLUORO TIME: 6.4 seconds 69 images saved to PACS. LIMITATIONS: None. PROCEDURE: After obtaining informed consent, the patient was brought to the CT suite and was initial ly placed prone on the CT gurney. The patient was prepped and draped in the usual sterile fashion . Axial images were obtained for targeting of thedeep pelvic abscess. An appropriate access site was se lected. IV conscious sedation was administered and physician direction by the registered nurse using 2.0 milligrams of Versed and 50 micrograms of fentanyl. Physiologic monitoring was provided before, during, and after sedation. The total sedation time was 20 minutes. Documentation face to face time, the performing proceduralist, spent monitoring the patient: 20minute s. Using CT fluoroscopic guidance the fluid collection in the deep pelvis was successfully cannulated. Purulent fluid was immediately aspirated. A guidewire was placed. Sequential dilatation performed a nd a 10 [place] APD catheter placed and secured in place. Catheter was connected to accordion drainag e bag. The patient was then placed in a prone position. 2nd complex fluid collection is located in the righ t lower quadrant. 1% lidocaine was used for local anesthesia. Again using CT fluoroscopic guidance the collection was cannulated purulent fluid was aspirated. A guidewire was placed, sequential dilat ation performed and a 10 [place] APD catheter placed. Catheter was formed in the collection. Cathete r was secured to the skin and connected to accordion drainage bag. There were no complications. IMPRESSION: Successful CT-guided placement of percutaneous drainage catheter is in the deep pelvic a bscess and in the right lower quadrant abscess. There were no immediate complications. COMMENT: Patient medication list reviewed:Yes- Quality ID# 130:Eligible professional attests to docu menting in the medical record they obtained, updated, or reviewed the patient's current medications. Quality ID #76: The patient was prepped and draped using maximum sterile barrier technique including cap, mask, sterile gown, sterile gloves, a large sterile sheet, hand hygiene, and 2% Chlorhexidine fo r cutaneous antisepsis. When ultrasound is used, sterile ultrasound techniques are followed requiring sterile gel and sterile probes. Quality ID 145: Final reports for procedures using fluoroscopy that document radiation exposure mena linus, or exposure time and number of fluorographic images (if radiation exposure indices are not avail able) Quality ID# 436: Final reports with documentation of one or more dose reduction techniques (e.g., Aut omated exposure control, adjustment of the mA and/or kV according to patient size, use of iterative r econstruction technique) TECHNICAL DOCUMENTATION: JOB ID: [id number] 2010 [employer]- All Rights Reserved Reading location - IP/workstation name: [email or web address]
--- NOTE | 2020-02-03 15:41 | PDOC PROGRESS REPORT ---
Subjective Progress Note for:: 02/03/20 Subjective:: no flatus, no BM, + voiding per patient. feels bloated. just returned from CT scan and Drainage of pelvic abscess Reason For Visit: TUBO OVARIAN ABSCESS,FEVER,TACHYCARDIA,LeUKOCYTOSIS Physical Exam - Physical Exam Vital Signs: Temp Pulse Resp BP Pulse Ox 97.5 F 70 22 H 91/59 L 100 02/03/20 10:00 02/03/20 08:00 02/03/20 08:00 02/03/20 08:00 02/03/20 08:00 Intake & Output 02/02/20 02/03/20 02/04/20 06:59 06:59 06:59 Intake Total 1182.531 4103.750 100 Output Total 100 100 200 Balance 2651.420 2948.750 -100 Weight 54.2 kg 58.6 kg General appearance: PRESENT: no acute distress, well-developed, well-nourished Respiratory exam: PRESENT: clear to auscultation qamar, symmetrical, unlabored Cardiovascular exam: PRESENT: RRR. ABSENT: diastolic murmur, rubs, systolic murmur Pulses: PRESENT: normal dorsalis pedis pul, +2 pedal pulses bilateral GI/Abdominal exam: PRESENT: other - distended, + bowel sounds. drains in place Rectal exam: PRESENT: deferred Extremities exam: PRESENT: full ROM. ABSENT: calf tenderness, clubbing, pedal edema Neurological exam: PRESENT: alert, awake, oriented to person, oriented to place, oriented to time, oriented to situation, CN II-XII grossly intact. ABSENT: motor sensory deficit Psychiatric exam: PRESENT: appropriate affect, normal mood. ABSENT: homicidal ideation, suicidal ideation Result Laboratory Results: 02/03/20 07:00 02/03/20 10:28 02/03/20 02/03/20 07:00 10:28 WBC 17.8 H RBC 2.85 L Hgb 8.7 L Hct 25.4 L MCV 89 MCH 30.7 MCHC 34.4 RDW 13.4 Plt Count 450 Seg Neutrophils % 89.8 H Creatinine 3.11 H Est GFR ( Amer) 21 L Impressions: Chest X-Ray 01/31/20 18:53 IMPRESSION: 1. No significant interval changes since the prior examination dated 04/21/2015. No acute findings. Pelvis MRI 02/01/20 00:00 IMPRESSION: Multiple dilated luminal structures which cannot exclude abscesses. Potentially amenable to CT-guided drainage. Transvaginal US 02/01/20 00:00 IMPRESSION: Bilateral adnexal tubular structures are seen with low level internal echoes and septations. These may represent tubo-ovarian abscess or endometrioma associated with hematosalpinx. Interval follow-up is also recommended to exclude an underlying mass. This could be evaluated with MRI imaging. Renal Ultrasound 02/03/20 11:24 IMPRESSION: 1. Normal renal ultrasound. Probable bladder debris. 2. Free fluid in the pelvis, right upper quadrant and left lower quadrant. Abdomen/Pelvis CT 02/03/20 13:00 IMPRESSION: 1. Basilar atelectasis and small pleural effusions. 2. Focal fluid collections in the pelvis anterior to the rectum and posterior the uterus is 2nd collection in the right lower quadrant. 3. Small volume ascites. 4. Thickening of the cecal wall. The appendix is not identified. Retroperitoneal Abscess Drainage 02/03/20 13:00 IMPRESSION: Successful CT-guided placement of percutaneous drainage catheter is in the deep pelvic abscess and in the right lower quadrant abscess. There were no immediate complications. Assessment & Plan - Diagnosis (1) Positive blood culture Is this a current diagnosis for this admission?: Yes Plan: possible contaminant. sensitivities pending cont IV Abx mefoxy/doxy/flagyl (2) Tubo-ovarian abscess Is this a current diagnosis for this admission?: Yes Plan: Pelvic Abscess suspect TOA. As per prior note Abx changed to Mefoxy/doxy/flagyl due to elev creatinine on gent and cont inc WBC on prior abx. CT can with thickened cecum. Unable to identify appendix. Over 250ml drained form pelvic abscess. Pt reports pain began 3 months ago and that she went to ER in [place] b/c she thought she had appendicitis. D/w Dr. Victor re: pt presentation and ok with abx but presentation appears possibly too far out for appendix as cause. Reviewed plan for abx and for rescan patient once creatinine/renal function improves and if appears bowel involved will officially consult Gen Surgery if needed. Appreciate Dr. Victor's assistance. Cont abx. Monitor for fever. Strict I/O. Ok to eat. Cont IVF. (3) Urinary tract infection Qualifiers: Urinary tract infection type: acute cystitis Is this a current diagnosis for this admission?: Yes Plan: cont abx. (4) Elevated serum creatinine Is this a current diagnosis for this admission?: Yes Plan: Appreciate consult from Dr Irizarry. Kathe radford. Renal scan unremarkable. - Time Time Spent with patient: 15-24 minutes Medications reviewed and adjusted accordingly: Yes Anticipated discharge: Home Anticipated DC Timeframe: within 72 hours - Inpatient Certification Based on my medical assessment, after consideration of the patient's comorbidities, presenting symptoms, or acuity I expect that the services needed warrant INPATIENT care.: Yes I certify that my determination is in accordance with my understanding of Medicare's requirements for reasonable and necessary INPATIENT services [42 CFR 412.3e].: Yes Medical Necessity: Failure to Improve With Outpatient Therapy, Need Close Monitoring Due to Risk of Patient Decompensation, Need For IV Fluids, Need for Pain Control, Need for IV Antibiotics, Risk of Complication if Not Cared For in Hospital
[2020-02-03] MEDS ORDERED: RINGERS SOLUTION,LACTATED 1,000 ML IV PRN (15:43)
--- NOTE | 2020-02-03 17:07 | PDOC CONSULTATION ---
Consultation Consult Date: 02/03/20 Attending physician:: GUALBERTO ROSSI Provider Consulted: PATTIE FUENTES History of Present Illness Admission Date/PCP: 01/31/20 22:35 ERICH TRUJILLO MD Patient complains of: Abdominal pain ,elevated creatinine History of Present Illness: RY GILES I is a 29 year old female, past medical history of chronic back pain on Percocet who came in the ED on January 31, 2020 due to left-sided pelvic pain fever and chills. She was found to have a tubo-ovarian abscess on US. She was started on clindamycin and gentamicin for antibiotics. Also given IV fluids. Creatinine when she was admitted was normal at 0.55. Repeat CMP today showed a creatinine of 3.55 from 1.55 yesterday. She continues to produce good amount of urine and denies any edema. Hospitalist service consulted for creatinine elevation. Patient underwent IR guided drainage of tubo-ovarian abscess. Antibiotics switched to cefoxitin, doxycycline, metronidazole. Clindamycin and gentamicin was stopped today. Past Medical History Cardiac Medical History: Reports: None Pulmonary Medical History: Reports: None EENT Medical History: Reports: None Neurological Medical History: Reports: None Endocrine Medical History: Reports: None Renal/ Medical History: Reports: None Malignancy Medical History: Reports: None GI Medical History: Reports: None Musculoskeltal Medical History: Reports: Other - Chronic back pain Psychiatric Medical History: Denies: Depression Traumatic Medical History: Reports: None Hematology: Reports: None Past Surgical History Past Surgical History: Reports: None Social History Information Source: Patient Lives with: Family Smoking Status: Current Every Day Smoker Cigarettes Packs Per Day: 1 Hx Recreational Drug Use: No Drugs: None Family History Family History: Reviewed & Not Pertinent, DM, Hypertension Parental Family History Reviewed: Yes Children Family History Reviewed: Yes Sibling(s) Family History Reviewed.: Yes Medication/Allergy Home Medications: Amox Tr/Potassium Clavulanate [Augmentin 875-125 mg Tablet] 1 tab PO BID #20 tablet 03/09/13 Methocarbamol [Robaxin 750 mg Tablet] 750 mg PO ASDIR PRN #40 tablet 06/26/13 Oxycodone HCl/Acetaminophen [Percocet 5-325 mg Tablet] 1 tab PO Q4H PRN #25 tablet 06/26/13 Promethazine HCl [Phenergan 25 mg Tablet] 1 - 2 tab PO Q6H PRN #15 tablet 06/26/13 Ciprofloxacin HCl [Cipro 500 mg Tablet] 500 mg PO BID #20 tablet 04/21/15 Oxycodone HCl/Acetaminophen [Percocet 5-325 mg Tablet] 1 - 2 tab PO ASDIR PRN #25 tablet 04/21/15 Promethazine HCl [Phenergan 25 mg Tablet] 25 mg PO Q6H PRN #15 tablet 04/21/15 Ibuprofen [Motrin 600 mg Tablet] 600 mg PO Q8HP PRN #21 tablet 03/15/18 Phenazopyridine HCl [Pyridium 200 mg Tablet] 200 mg PO TID #20 tablet 03/15/18 Sulfamethoxazole/Trimethoprim [Bactrim Ds Tablet] 1 each PO BID #20 tablet 03/15/18 Docusate Sodium [Colace 100 mg Capsule] 100 mg PO BID #30 capsule 01/26/20 Polyethylene Glycol 3350 [Miralax] 1 cap PO BID PRN #527 powder 01/26/20 Allergies/Adverse Reactions: No Known Allergies Allergy (Verified 03/15/18 16:49) Review of Systems Constitutional: PRESENT: chills, fever(s) Eyes: ABSENT: visual disturbances Ears: ABSENT: hearing changes Nose, Mouth, and Throat: ABSENT: headache(s) Cardiovascular: ABSENT: edema, orthropnea, palpitations Integumentary: ABSENT: lesions Physical Exam Vital Signs: Temp Pulse Resp BP Pulse Ox 97.4 F 98 21 H 88/46 L 100 02/03/20 16:17 02/03/20 16:17 02/03/20 16:17 02/03/20 16:17 02/03/20 16:17 Intake & Output 02/02/20 02/03/20 02/04/20 06:59 06:59 06:59 Intake Total 3247.619 6816.750 100 Output Total 100 100 200 Balance 9678.629 8069.750 -100 Weight 54.2 kg 58.6 kg General appearance: PRESENT: no acute distress, cooperative Head exam: PRESENT: atraumatic Eye exam: PRESENT: EOMI, PERRLA Mouth exam: PRESENT: moist Neck exam: PRESENT: full ROM Cardiovascular exam: PRESENT: RRR, +S1, +S2 GI/Abdominal exam: PRESENT: hypoactive bowel sounds, soft, tenderness - Right lower quadrant Extremities exam: PRESENT: full ROM Musculoskeletal exam: PRESENT: full ROM Neurological exam: PRESENT: alert, awake, oriented to person, oriented to place, oriented to time, oriented to situation Skin exam: PRESENT: normal color Results Laboratory Results: 02/03/20 07:00 02/03/20 10:28 02/03/20 02/03/20 07:00 10:28 WBC 17.8 H RBC 2.85 L Hgb 8.7 L Hct 25.4 L MCV 89 MCH 30.7 MCHC 34.4 RDW 13.4 Plt Count 450 Seg Neutrophils % 89.8 H Creatinine 3.11 H Est GFR ( Amer) 21 L Impressions: Chest X-Ray 01/31/20 18:53 IMPRESSION: 1. No significant interval changes since the prior examination dated 04/21/2015. No acute findings. Pelvis MRI 02/01/20 00:00 IMPRESSION: Multiple dilated luminal structures which cannot exclude abscesses. Potentially amenable to CT-guided drainage. Transvaginal US 02/01/20 00:00 IMPRESSION: Bilateral adnexal tubular structures are seen with low level internal echoes and septations. These may represent tubo-ovarian abscess or endometrioma associated with hematosalpinx. Interval follow-up is also recommended to exclude an underlying mass. This could be evaluated with MRI imaging. Renal Ultrasound 02/03/20 11:24 IMPRESSION: 1. Normal renal ultrasound. Probable bladder debris. 2. Free fluid in the pelvis, right upper quadrant and left lower quadrant. Abdomen/Pelvis CT 02/03/20 13:00 IMPRESSION: 1. Basilar atelectasis and small pleural effusions. 2. Focal fluid collections in the pelvis anterior to the rectum and posterior the uterus is 2nd collection in the right lower quadrant. 3. Small volume ascites. 4. Thickening of the cecal wall. The appendix is not identified. Retroperitoneal Abscess Drainage 02/03/20 13:00 IMPRESSION: Successful CT-guided placement of percutaneous drainage catheter is in the deep pelvic abscess and in the right lower quadrant abscess. There were no immediate complications. Assessment and Plan - Diagnosis (1) KILEY (acute kidney injury) Is this a current diagnosis for this admission?: Yes Plan: -Patient initially admitted for abdominal pain was found to have tubo-ovarian abscess and was started on clindamycin gentamicin and ibuprofen. -Patient noted with elevated creatinine from a baseline of 0.55 -Nonoliguric -no signs of uremia -Urinalysis showed positive nitrite and positive leukocyte esterase, no proteinuria -Renal ultrasound was normal besides the free fluid in the pelvis, right upper quadrant and left lower quadrant consistent with tubo-ovarian abscess -pre renal KILEY from dehydration, renal KILEY from medications, post renal less likely since US shows no obstruction -Urine sodium, urine creatinine to calculate Fouzia -Recommend to stop ibuprofen -Continue IV fluids for hydration -Continue antibiotics for abscess and UTI - avoid nephrotoxic meds -Daily CMP to monitor creatinine -Strict I&O (2) Right tubo-ovarian mass Is this a current diagnosis for this admission?: Yes Plan: Status post IR drainage of abscess -Continue antibiotics -management per Gyne service - Plan Summary Summary: Hospitalist service consulted due to elevated creatinine of 3.11 from 0.55. Patient has ongoing infection from a tubo-ovarian abscess, also has UTI. She received ibuprofen and gentamicin which can affect creatinine. Ibuprofen stopped and gentamicin switched to another class of antibiotics. She is nonoliguric, with no signs of uremia. We will continue to hydrate her and monitor CMP daily. We will follow along with you - Time Time Spent with patient: 15-24 minutes Medications reviewed and adjusted accordingly: Yes Anticipated Discharge Disposition: Home, Self Care Anticipated Discharge Timeframe: to be determined
[2020-02-03] MEDS: CEFOXITIN SODIUM 2 GM in DEXTROSE 5%-WATER 100 ML IV SCH (18:09)
[2020-02-03] MEDS: METRONIDAZOLE 500 MG/NS RTU 500 MG/100 ML RTUPB IV SCH (20:47)
[2020-02-03] MEDS: DOXYCYCLINE HYCLATE 100 MG in DEXTROSE 5%-WATER 250 ML IV SCH (21:58)
[2020-02-03] MEDS ORDERED: DOXYCYCLINE HYCLATE INJ 100 MG VIAL IV SCH (22:00)
[2020-02-03 23:34] LABS: URINE CREATININE 52.4 mg/dL (16-327)
[2020-02-04] MEDS: OXYCODONE-ACETAMINOPHEN 5-325 MG TABLET PO PRN ×3 (04:04→20:48)
[2020-02-04] MEDS: CEFOXITIN SODIUM 2 GM in DEXTROSE 5%-WATER 100 ML IV SCH ×2 (05:58→18:12)
[2020-02-04 07:36] LABS: HEMATOCRIT 24.3 % (36.0-47.0); HEMOGLOBIN 8.2 g/dL (12.0-15.5); MEAN CORPUSCULAR HEMOGLOBIN 30.1 pg (27.0-33.4); MEAN CORPUSCULAR HGB CONC 33.7 g/dL (32.0-36.0); MEAN CORPUSCULAR VOLUME 89 fl (80-97); PLATELET COUNT 482 10^3/uL (150-450); RED BLOOD COUNT 2.72 10^6/uL (3.72-5.28); RED CELL DISTRIBUTION WIDTH 13.7 % (11.5-14.0); WHITE BLOOD COUNT 19.4 10^3/uL (4.0-10.5)
[2020-02-04 08:00] LABS: ALBUMIN 2.1 g/dL (3.5-5.0); ALKALINE PHOSPHATASE 206 U/L (38-126); ANION GAP 12 (5-19); ASPARTATE AMINO TRANSFERASE 19 U/L (14-36); BILIRUBIN,DIRECT 0.4 mg/dL (0.0-0.4); BILIRUBIN,TOTAL 0.4 mg/dL (0.2-1.3); BLOOD UREA NITROGEN 38 mg/dL (7-20); CALCIUM 7.9 mg/dL (8.4-10.2); CARBON DIOXIDE 19 mmol/L (22-30); CHLORIDE 102 mmol/L (98-107); GLUCOSE 99 mg/dL (75-110)
[2020-02-04] MEDS: METRONIDAZOLE 500 MG/NS RTU 500 MG/100 ML RTUPB IV SCH ×2 (08:04→20:24)
[2020-02-04] MEDS ORDERED: MAGNESIUM HYDROXIDE SUSP 30 ML UDCUP PO PRN (08:58)
[2020-02-04] MEDS ORDERED: BISACODYL 10 MG SUPP.RECT PR PRN (08:58)
[2020-02-04] MEDS ORDERED: SIMETHICONE 80 MG TAB.CHEW PO PRN (08:59)
[2020-02-04] MEDS: DOXYCYCLINE HYCLATE 100 MG in DEXTROSE 5%-WATER 250 ML IV SCH ×2 (09:59→22:37)
--- NOTE | 2020-02-04 11:05 | PDOC PROGRESS REPORT ---
Subjective Progress Note for:: 02/04/20 Subjective:: RY GILES I is a 29 year old female, past medical history of chronic back pain on Percocet who came in the ED on January 31, 2020 due to left-sided pelvic pain fever and chills. She was found to have a tubo-ovarian abscess on US. She was started on clindamycin and gentamicin for antibiotics. Also given IV fluids. Creatinine when she was admitted was normal at 0.55. Repeat CMP today showed a creatinine of 3.55 from 1.55 yesterday. She continues to produce good amount of urine and denies any edema. Hospitalist service consulted for creatinine elevation. Patient underwent IR guided drainage of tubo-ovarian abscess. Antibiotics switched to cefoxitin, doxycycline, metronidazole. Clindamycin and gentamicin was stopped today. 02/04/20 She was seen and examined at bedside today. Reports that her abdominal pain has improved. She is producing good amount of urine. Denies any shortness of breath or edema. Appetite is fair, she complains of constipation. Creatinine down to 2.9 from 3.11 today. UO 1.7L Reason For Visit: TUBO OVARIAN ABSCESS,FEVER,TACHYCARDIA,LUKOCYTOSIS Physical Exam Vital Signs: Temp Pulse Resp BP Pulse Ox 97.8 F 101 H 18 103/56 L 100 02/04/20 07:47 02/04/20 07:47 02/04/20 07:47 02/04/20 07:47 02/04/20 07:47 Intake & Output 02/03/20 02/04/20 02/05/20 06:59 06:59 05:59 Intake Total 3633.034 1812.875 Output Total 100 1730 Balance 1453.750 747.875 Weight 58.6 kg 56.6 kg General appearance: PRESENT: no acute distress, cooperative Head exam: PRESENT: atraumatic, normocephalic Eye exam: PRESENT: EOMI, PERRLA Mouth exam: PRESENT: moist Neck exam: PRESENT: full ROM Respiratory exam: PRESENT: clear to auscultation qamar, symmetrical, unlabored. ABSENT: rales Cardiovascular exam: PRESENT: RRR, +S1, +S2 GI/Abdominal exam: PRESENT: normal bowel sounds, soft. ABSENT: rebound, tenderness Extremities exam: PRESENT: full ROM Musculoskeletal exam: PRESENT: full ROM Neurological exam: PRESENT: alert, awake, oriented to person, oriented to place, oriented to time, oriented to situation Psychiatric exam: PRESENT: normal mood Skin exam: PRESENT: normal color Results Laboratory Results: 02/04/20 07:23 02/04/20 07:23 02/03/20 02/04/20 02/04/20 10:28 07:23 07:23 WBC 19.4 H RBC 2.72 L Hgb 8.2 L Hct 24.3 L MCV 89 MCH 30.1 MCHC 33.7 RDW 13.7 Plt Count 482 H Sodium 132.8 L Potassium 4.0 Chloride 102 Carbon Dioxide 19 L Anion Gap 12 BUN 38 H Creatinine 3.11 H 2.84 H Est GFR ( Amer) 21 L 23 L Glucose 99 Calcium 7.9 L Total Bilirubin 0.4 AST 19 Alkaline Phosphatase 206 H Total Protein 5.0 L Albumin 2.1 L Impressions: Chest X-Ray 01/31/20 18:53 IMPRESSION: 1. No significant interval changes since the prior examination dated 04/21/2015. No acute findings. Pelvis MRI 02/01/20 00:00 IMPRESSION: Multiple dilated luminal structures which cannot exclude abscesses. Potentially amenable to CT-guided drainage. Transvaginal US 02/01/20 00:00 IMPRESSION: Bilateral adnexal tubular structures are seen with low level internal echoes and septations. These may represent tubo-ovarian abscess or endometrioma associated with hematosalpinx. Interval follow-up is also recommended to exclude an underlying mass. This could be evaluated with MRI imaging. Renal Ultrasound 02/03/20 11:24 IMPRESSION: 1. Normal renal ultrasound. Probable bladder debris. 2. Free fluid in the pelvis, right upper quadrant and left lower quadrant. Abdomen/Pelvis CT 02/03/20 13:00 IMPRESSION: 1. Basilar atelectasis and small pleural effusions. 2. Focal fluid collections in the pelvis anterior to the rectum and posterior the uterus is 2nd collection in the right lower quadrant. 3. Small volume ascites. 4. Thickening of the cecal wall. The appendix is not identified. Retroperitoneal Abscess Drainage 02/03/20 13:00 IMPRESSION: Successful CT-guided placement of percutaneous drainage catheter is in the deep pelvic abscess and in the right lower quadrant abscess. There were no immediate complications. Assessment and Plan - Diagnosis (1) KILEY (acute kidney injury) Is this a current diagnosis for this admission?: Yes Plan: -Patient initially admitted for abdominal pain was found to have tubo-ovarian abscess and was started on clindamycin gentamicin and ibuprofen. -Patient noted with elevated creatinine from a baseline of 0.55 -Nonoliguric -no signs of uremia -Urinalysis showed positive nitrite and positive leukocyte esterase, no proteinuria -Renal ultrasound was normal besides the free fluid in the pelvis, right upper quadrant and left lower quadrant consistent with tubo-ovarian abscess -Fena 1.6 consistent with intrinsic renal cause of KILEY -Recommend to stop ibuprofen -would continue current IV fuids running at the same rate -Continue antibiotics for abscess and UTI - avoid nephrotoxic meds, renally dose medications - Creatinine should improve the next couple of days with stopping of the offending agent and treatment of infection. She can be discharged even if her crea is not back to her baseline as long as its trending down. She would need a repeat BMP 1 week after discharge to check her crea. - will follow along with you -Daily CMP to monitor creatinine -Strict I&O (2) Right tubo-ovarian mass Is this a current diagnosis for this admission?: Yes Plan: Status post IR drainage of abscess -Continue antibiotics -management per Gyne service - Plan Summary Summary: Hospitalist service consulted due to elevated creatinine of 3.11 from 0.55. Patient has ongoing infection from a tubo-ovarian abscess, also has UTI. She received ibuprofen and gentamicin which can affect creatinine. Ibuprofen stopped and gentamicin switched to another class of antibiotics. She is nonoliguric, with no signs of uremia. Crea has improved with hydration down to 2.8. Will continue with Iv fluids and continue to monitor creatinine. - Time Time Spent with patient: 15-24 minutes Anticipated Discharge Disposition: Home, Self Care Anticipated Discharge Timeframe: to be determined
[2020-02-04] MEDS: DOCUSATE SODIUM 100 MG CAPSULE PO SCH ×2 (11:06→18:12)
--- NOTE | 2020-02-04 11:30 | PDOC PROGRESS REPORT ---
Subjective Progress Note for:: 02/04/20 Subjective:: She is feeling better today. Reason For Visit: TUBO OVARIAN ABSCESS,FEVER,TACHYCARDIA,LUKOCYTOSIS Physical Exam - Physical Exam Vital Signs: Temp Pulse Resp BP Pulse Ox 97.8 F 101 H 18 103/56 L 100 02/04/20 07:47 02/04/20 07:47 02/04/20 07:47 02/04/20 07:47 02/04/20 07:47 Intake & Output 02/03/20 02/04/20 02/05/20 06:59 06:59 05:59 Intake Total 8667.928 9988.875 Output Total 100 1730 Balance 1453.750 747.875 Weight 58.6 kg 56.6 kg General appearance: PRESENT: cooperative Head exam: PRESENT: normocephalic - Drains from pelvis present and draining Neurological exam: PRESENT: alert, awake, oriented to person, oriented to place, oriented to time, oriented to situation, CN II-XII grossly intact. ABSENT: motor sensory deficit Result Laboratory Results: 02/04/20 07:23 02/04/20 07:23 02/04/20 02/04/20 07:23 07:23 WBC 19.4 H RBC 2.72 L Hgb 8.2 L Hct 24.3 L MCV 89 MCH 30.1 MCHC 33.7 RDW 13.7 Plt Count 482 H Sodium 132.8 L Potassium 4.0 Chloride 102 Carbon Dioxide 19 L Anion Gap 12 BUN 38 H Creatinine 2.84 H Est GFR ( Amer) 23 L Glucose 99 Calcium 7.9 L Total Bilirubin 0.4 AST 19 Alkaline Phosphatase 206 H Total Protein 5.0 L Albumin 2.1 L Impressions: Chest X-Ray 01/31/20 18:53 IMPRESSION: 1. No significant interval changes since the prior examination dated 04/21/2015. No acute findings. Pelvis MRI 02/01/20 00:00 IMPRESSION: Multiple dilated luminal structures which cannot exclude abscesses. Potentially amenable to CT-guided drainage. Transvaginal US 02/01/20 00:00 IMPRESSION: Bilateral adnexal tubular structures are seen with low level internal echoes and septations. These may represent tubo-ovarian abscess or endometrioma associated with hematosalpinx. Interval follow-up is also recommended to exclude an underlying mass. This could be evaluated with MRI imaging. Renal Ultrasound 02/03/20 11:24 IMPRESSION: 1. Normal renal ultrasound. Probable bladder debris. 2. Free fluid in the pelvis, right upper quadrant and left lower quadrant. Abdomen/Pelvis CT 02/03/20 13:00 IMPRESSION: 1. Basilar atelectasis and small pleural effusions. 2. Focal fluid collections in the pelvis anterior to the rectum and posterior the uterus is 2nd collection in the right lower quadrant. 3. Small volume ascites. 4. Thickening of the cecal wall. The appendix is not identified. Retroperitoneal Abscess Drainage 02/03/20 13:00 IMPRESSION: Successful CT-guided placement of percutaneous drainage catheter is in the deep pelvic abscess and in the right lower quadrant abscess. There were no immediate complications. Assessment & Plan - Diagnosis (1) Leukocytosis Qualifiers: Leukocytosis type: unspecified Qualified Code(s): D72.829 - Elevated white blood cell count, unspecified Is this a current diagnosis for this admission?: Yes (2) Right tubo-ovarian mass Is this a current diagnosis for this admission?: Yes - Time Time Spent with patient: Less than 15 minutes Medications reviewed and adjusted accordingly: Yes - Plan Summary Plan Summary: After her renal function improves we plan another CT scan with contrast.
[2020-02-05] MEDS: OXYCODONE-ACETAMINOPHEN 5-325 MG TABLET PO PRN ×5 (04:01→21:14)
[2020-02-05] MEDS: CEFOXITIN SODIUM 2 GM in DEXTROSE 5%-WATER 100 ML IV SCH ×2 (06:43→17:14)
[2020-02-05] MEDS: METRONIDAZOLE 500 MG/NS RTU 500 MG/100 ML RTUPB IV SCH ×2 (08:16→19:29)
[2020-02-05 08:55] LABS: ALBUMIN 2.2 g/dL (3.5-5.0); ALKALINE PHOSPHATASE 231 U/L (38-126); ANION GAP 12 (5-19); ASPARTATE AMINO TRANSFERASE 22 U/L (14-36); BILIRUBIN,DIRECT 0.3 mg/dL (0.0-0.4); BILIRUBIN,TOTAL 0.4 mg/dL (0.2-1.3); BLOOD UREA NITROGEN 29 mg/dL (7-20); CALCIUM 8.5 mg/dL (8.4-10.2); CARBON DIOXIDE 21 mmol/L (22-30); CHLORIDE 102 mmol/L (98-107); GLUCOSE 97 mg/dL (75-110); POTASSIUM 3.6 mmol/L (3.6-5.0); TOTAL PROTEIN 5.3 g/dL (6.3-8.2)
--- NOTE | 2020-02-05 09:27 | PDOC PROGRESS REPORT ---
Subjective Progress Note for:: 02/05/20 Subjective:: She is getting frustrated with being in the hospital. Reason For Visit: TUBO OVARIAN ABSCESS,FEVER,TACHYCARDIA,LUKOCYTOSIS Physical Exam - Physical Exam Vital Signs: Temp Pulse Resp BP Pulse Ox 98.2 F 93 18 118/71 98 02/05/20 08:27 02/05/20 08:05 02/05/20 08:05 02/05/20 08:05 02/05/20 08:05 Intake & Output 02/04/20 02/05/20 02/06/20 07:59 06:59 06:59 Intake Total Output Total Balance Weight General appearance: PRESENT: cooperative Head exam: PRESENT: atraumatic - The two drain sites look ok., normocephalic Result Laboratory Results: 02/04/20 07:23 02/05/20 08:04 02/05/20 08:04 Sodium 135.1 L Potassium 3.6 Chloride 102 Carbon Dioxide 21 L Anion Gap 12 BUN 29 H Creatinine 1.80 H Est GFR ( Amer) 40 L Glucose 97 Calcium 8.5 Total Bilirubin 0.4 AST 22 Alkaline Phosphatase 231 H Total Protein 5.3 L Albumin 2.2 L Impressions: Chest X-Ray 01/31/20 18:53 IMPRESSION: 1. No significant interval changes since the prior examination dated 04/21/2015. No acute findings. Pelvis MRI 02/01/20 00:00 IMPRESSION: Multiple dilated luminal structures which cannot exclude abscesses. Potentially amenable to CT-guided drainage. Transvaginal US 02/01/20 00:00 IMPRESSION: Bilateral adnexal tubular structures are seen with low level internal echoes and septations. These may represent tubo-ovarian abscess or endometrioma associated with hematosalpinx. Interval follow-up is also recommended to exclude an underlying mass. This could be evaluated with MRI imaging. Renal Ultrasound 02/03/20 11:24 IMPRESSION: 1. Normal renal ultrasound. Probable bladder debris. 2. Free fluid in the pelvis, right upper quadrant and left lower quadrant. Abdomen/Pelvis CT 02/03/20 13:00 IMPRESSION: 1. Basilar atelectasis and small pleural effusions. 2. Focal fluid collections in the pelvis anterior to the rectum and posterior the uterus is 2nd collection in the right lower quadrant. 3. Small volume ascites. 4. Thickening of the cecal wall. The appendix is not identified. Retroperitoneal Abscess Drainage 02/03/20 13:00 IMPRESSION: Successful CT-guided placement of percutaneous drainage catheter is in the deep pelvic abscess and in the right lower quadrant abscess. There were no immediate complications. Assessment & Plan - Diagnosis (1) Leukocytosis Qualifiers: Leukocytosis type: unspecified Qualified Code(s): D72.829 - Elevated white blood cell count, unspecified Is this a current diagnosis for this admission?: Yes (2) Right tubo-ovarian mass Is this a current diagnosis for this admission?: Yes - Time Time Spent with patient: Less than 15 minutes - Plan Summary Plan Summary: Cr discussed with internal medicine. They feel tomorrow would be ok for the CT scan.
[2020-02-05] MEDS: DOCUSATE SODIUM 100 MG CAPSULE PO SCH ×2 (10:12→17:14)
[2020-02-05] MEDS: DOXYCYCLINE HYCLATE 100 MG in DEXTROSE 5%-WATER 250 ML IV SCH ×2 (10:13→21:13)
--- NOTE | 2020-02-05 10:30 | PDOC PROGRESS REPORT ---
Subjective Progress Note for:: 02/05/20 Subjective:: RY GILES I is a 29 year old female, past medical history of chronic back pain on Percocet who came in the ED on January 31, 2020 due to left-sided pelvic pain fever and chills. She was found to have a tubo-ovarian abscess on US. She was started on clindamycin and gentamicin for antibiotics. Also given IV fluids. Creatinine when she was admitted was normal at 0.55. Repeat CMP today showed a creatinine of 3.55 from 1.55 yesterday. She continues to produce good amount of urine and denies any edema. Hospitalist service consulted for creatinine elevation. Patient underwent IR guided drainage of tubo-ovarian abscess. Antibiotics switched to cefoxitin, doxycycline, metronidazole. Clindamycin and gentamicin was stopped today. 02/04/20 She was seen and examined at bedside today. Reports that her abdominal pain has improved. She is producing good amount of urine. Denies any shortness of breath or edema. Appetite is fair, she complains of constipation. Creatinine down to 2.9 from 3.11 today. UO 1.7L 02/05/20. She was seen and examined at bedside. Minimal drainage on her drains. She is making urine adequately. Minimal pain, no BM yet. Crea today down to 1.8. Plan for repeat CT abdomen tomorrow to re assess abscess which should be ok since her creatinine has improved and she is adequately hydrated. Reason For Visit: TUBO OVARIAN ABSCESS,FEVER,TACHYCARDIA,LUKOCYTOSIS Physical Exam Vital Signs: Temp Pulse Resp BP Pulse Ox 98.2 F 93 18 118/71 98 02/05/20 08:27 02/05/20 08:05 02/05/20 08:05 02/05/20 08:05 02/05/20 08:05 Intake & Output 02/04/20 02/05/20 02/06/20 07:59 06:59 06:59 Intake Total Output Total 400 Balance -400 Weight General appearance: PRESENT: no acute distress, cooperative Head exam: PRESENT: atraumatic, normocephalic Eye exam: PRESENT: EOMI, PERRLA Mouth exam: PRESENT: moist Neck exam: PRESENT: full ROM Respiratory exam: PRESENT: clear to auscultation qamar, symmetrical, unlabored Cardiovascular exam: PRESENT: RRR, +S1, +S2 Pulses: PRESENT: normal carotid pulses GI/Abdominal exam: PRESENT: hypoactive bowel sounds, soft, other - with surgical drains in place Extremities exam: PRESENT: full ROM Musculoskeletal exam: PRESENT: full ROM Neurological exam: PRESENT: alert, awake, oriented to person, oriented to place, oriented to time Psychiatric exam: PRESENT: agitated, normal mood Results Laboratory Results: 02/04/20 07:23 02/05/20 08:04 02/05/20 08:04 Sodium 135.1 L Potassium 3.6 Chloride 102 Carbon Dioxide 21 L Anion Gap 12 BUN 29 H Creatinine 1.80 H Est GFR ( Amer) 40 L Glucose 97 Calcium 8.5 Total Bilirubin 0.4 AST 22 Alkaline Phosphatase 231 H Total Protein 5.3 L Albumin 2.2 L Impressions: Chest X-Ray 01/31/20 18:53 IMPRESSION: 1. No significant interval changes since the prior examination dated 04/21/2015. No acute findings. Pelvis MRI 02/01/20 00:00 IMPRESSION: Multiple dilated luminal structures which cannot exclude abscesses. Potentially amenable to CT-guided drainage. Transvaginal US 02/01/20 00:00 IMPRESSION: Bilateral adnexal tubular structures are seen with low level internal echoes and septations. These may represent tubo-ovarian abscess or endometrioma associated with hematosalpinx. Interval follow-up is also recommended to exclude an underlying mass. This could be evaluated with MRI imaging. Renal Ultrasound 02/03/20 11:24 IMPRESSION: 1. Normal renal ultrasound. Probable bladder debris. 2. Free fluid in the pelvis, right upper quadrant and left lower quadrant. Abdomen/Pelvis CT 02/03/20 13:00 IMPRESSION: 1. Basilar atelectasis and small pleural effusions. 2. Focal fluid collections in the pelvis anterior to the rectum and posterior the uterus is 2nd collection in the right lower quadrant. 3. Small volume ascites. 4. Thickening of the cecal wall. The appendix is not identified. Retroperitoneal Abscess Drainage 02/03/20 13:00 IMPRESSION: Successful CT-guided placement of percutaneous drainage catheter is in the deep pelvic abscess and in the right lower quadrant abscess. There were no immediate complications. Assessment and Plan - Diagnosis (1) KILEY (acute kidney injury) Is this a current diagnosis for this admission?: Yes Plan: -Improved. Crea 0.55>1.55>3.5>2.8>1.8 -Nonoliguric -no signs of uremia -Urinalysis showed positive nitrite and positive leukocyte esterase, no proteinuria -Renal ultrasound was normal besides the free fluid in the pelvis, right upper quadrant and left lower quadrant consistent with tubo-ovarian abscess -Fena 1.6 consistent with intrinsic renal cause of KILEY -Recommend to stop ibuprofen -would continue current IV fuids running at the same rate -Continue antibiotics for abscess and UTI - avoid nephrotoxic meds, renally dose medications -Plan for repeat CT abdomen with contrast tomorrow. No objection to this,since her creatinine has improved and she is well hydrated. - will follow along with you -Daily CMP to monitor creatinine -Strict I&O (2) Right tubo-ovarian mass Is this a current diagnosis for this admission?: Yes Plan: Status post IR drainage of abscess -Continue antibiotics -management per Gyne service - Plan Summary Summary: Hospitalist service consulted due to elevated creatinine of 3.11 from 0.55. Patient has ongoing infection from a tubo-ovarian abscess, also has UTI. She received ibuprofen and gentamicin which can affect creatinine. Ibuprofen stopped and gentamicin switched to another class of antibiotics. She is nonoliguric, with no signs of uremia. Crea has improved with hydration down to 21.8. Will continue with Iv fluids and continue to monitor creatinine. - Time Time Spent with patient: 25-34 minutes Anticipated Discharge Disposition: Home, Self Care Anticipated Discharge Timeframe: to be determined
--- NOTE | 2020-02-05 17:55 | Progress Note ---
Provider Note Provider Note: Case discussed with the team. In light of recent recovery from KILEY and with still slightly elevated creatinine. Would not recommend giving her another contrast for CT. Suggest to explore other imaging modality to assess tubo ovarian abscess.
[2020-02-06] MEDS: OXYCODONE-ACETAMINOPHEN 5-325 MG TABLET PO PRN ×2 (04:10→17:24)
[2020-02-06] MEDS: CEFOXITIN SODIUM 2 GM in DEXTROSE 5%-WATER 100 ML IV SCH ×2 (06:17→17:18)
[2020-02-06 06:31] LABS: HEMATOCRIT 23.4 % (36.0-47.0); HEMOGLOBIN 8.1 g/dL (12.0-15.5); MEAN CORPUSCULAR HEMOGLOBIN 30.3 pg (27.0-33.4); MEAN CORPUSCULAR HGB CONC 34.8 g/dL (32.0-36.0); MEAN CORPUSCULAR VOLUME 87 fl (80-97); RED BLOOD COUNT 2.68 10^6/uL (3.72-5.28); RED CELL DISTRIBUTION WIDTH 13.4 % (11.5-14.0); WHITE BLOOD COUNT 14.1 10^3/uL (4.0-10.5)
[2020-02-06 07:09] LABS: ALBUMIN 2.2 g/dL (3.5-5.0); ALKALINE PHOSPHATASE 202 U/L (38-126); ANION GAP 11 (5-19); ASPARTATE AMINO TRANSFERASE 22 U/L (14-36); BILIRUBIN,DIRECT 0.5 mg/dL (0.0-0.4); BILIRUBIN,TOTAL 0.5 mg/dL (0.2-1.3); BLOOD UREA NITROGEN 21 mg/dL (7-20); CALCIUM 8.2 mg/dL (8.4-10.2); CARBON DIOXIDE 23 mmol/L (22-30); CHLORIDE 100 mmol/L (98-107); GLUCOSE 90 mg/dL (75-110); POTASSIUM 3.3 mmol/L (3.6-5.0); TOTAL PROTEIN 5.2 g/dL (6.3-8.2)
[2020-02-06 07:16] LABS: ABSOLUTE LYMPHOCYTES# (MANUAL) 1.8 10^3/uL (0.5-4.7); ABSOLUTE MONOCYTES # (MANUAL) 0.7 10^3/uL (0.1-1.4); BAND NEUTROPHILS % (MANUAL) 2 % (3-5); BASOPHILS % (MANUAL) 0 % (0-2); EOSINOPHILS % (MANUAL) 2 % (0-6); LYMPHOCYTES % (MANUAL) 13 % (13-45); MONOCYTES % (MANUAL) 5 % (3-13); SEGMENTED NEUTROPHILS % (MAN) 70 % (42-78); TOTAL CELLS COUNTED 100
[2020-02-06 07:18] LABS: PLATELET CLUMPS PRESENT; PLATELET COMMENT INCREASED
[2020-02-06 07:22] LABS: METAMYELOCYTES % (MANUAL) 5 % (0-1); MYELOCYTES % (MANUAL) 2 % (0); PLATELET COUNT 499 10^3/uL (150-450); PROMYELOCYTES % (MANUAL) 1 % (0)
[2020-02-06] MEDS: METRONIDAZOLE 500 MG/NS RTU 500 MG/100 ML RTUPB IV SCH ×2 (07:59→20:10)
--- NOTE | 2020-02-06 09:02 | PDOC PROGRESS REPORT ---
Subjective Progress Note for:: 02/06/20 Subjective:: Pt states she feels better and wants to go home Reason For Visit: TUBO OVARIAN ABSCESS,FEVER,TACHYCARDIA,LUKOCYTOSIS Physical Exam - Physical Exam Vital Signs: Temp Pulse Resp BP Pulse Ox 98.2 F 68 16 105/58 L 99 02/06/20 08:36 02/06/20 08:00 02/06/20 08:00 02/06/20 08:00 02/06/20 08:00 Intake & Output 02/05/20 02/06/20 02/07/20 06:59 06:59 06:59 Intake Total 730 Output Total 3270 Balance -2540 Weight 52.8 kg General appearance: PRESENT: no acute distress Respiratory exam: PRESENT: clear to auscultation qamar Cardiovascular exam: PRESENT: RRR Result Laboratory Results: 02/06/20 05:59 02/06/20 05:59 02/05/20 02/06/20 02/06/20 08:04 05:59 05:59 WBC 14.1 H RBC 2.68 L Hgb 8.1 L Hct 23.4 L MCV 87 MCH 30.3 MCHC 34.8 RDW 13.4 Plt Count 499 H Seg Neutrophils % Not Reportable Sodium 135.1 L 133.8 L Potassium 3.6 3.3 L Chloride 102 100 Carbon Dioxide 21 L 23 Anion Gap 12 11 BUN 29 H 21 H Creatinine 1.80 H 1.31 H Est GFR ( Amer) 40 L 57 L Glucose 97 90 Calcium 8.5 8.2 L Total Bilirubin 0.4 0.5 AST 22 22 Alkaline Phosphatase 231 H 202 H Total Protein 5.3 L 5.2 L Albumin 2.2 L 2.2 L 01/31/20 21:30 Blood Blood Culture - Final NO GROWTH IN 5 DAYS 01/31/20 20:18 Blood Blood Culture - Final Peptostreptococcus Species Impressions: Chest X-Ray 01/31/20 18:53 IMPRESSION: 1. No significant interval changes since the prior examination dated 04/21/2015. No acute findings. Pelvis MRI 02/01/20 00:00 IMPRESSION: Multiple dilated luminal structures which cannot exclude abscesses. Potentially amenable to CT-guided drainage. Transvaginal US 02/01/20 00:00 IMPRESSION: Bilateral adnexal tubular structures are seen with low level internal echoes and septations. These may represent tubo-ovarian abscess or endometrioma associated with hematosalpinx. Interval follow-up is also recommended to exclude an underlying mass. This could be evaluated with MRI imaging. Renal Ultrasound 02/03/20 11:24 IMPRESSION: 1. Normal renal ultrasound. Probable bladder debris. 2. Free fluid in the pelvis, right upper quadrant and left lower quadrant. Abdomen/Pelvis CT 02/03/20 13:00 IMPRESSION: 1. Basilar atelectasis and small pleural effusions. 2. Focal fluid collections in the pelvis anterior to the rectum and posterior the uterus is 2nd collection in the right lower quadrant. 3. Small volume ascites. 4. Thickening of the cecal wall. The appendix is not identified. Retroperitoneal Abscess Drainage 02/03/20 13:00 IMPRESSION: Successful CT-guided placement of percutaneous drainage catheter is in the deep pelvic abscess and in the right lower quadrant abscess. There were no immediate complications. Assessment & Plan - Diagnosis (1) Right tubo-ovarian mass Is this a current diagnosis for this admission?: Yes (2) Leukocytosis Qualifiers: Leukocytosis type: unspecified Qualified Code(s): D72.829 - Elevated white blood cell count, unspecified Is this a current diagnosis for this admission?: Yes (3) Urinary tract infection Qualifiers: Urinary tract infection type: acute cystitis Is this a current diagnosis for this admission?: Yes (4) KILEY (acute kidney injury) Is this a current diagnosis for this admission?: Yes (5) Positive blood culture Is this a current diagnosis for this admission?: Yes (6) Tubo-ovarian abscess Is this a current diagnosis for this admission?: Yes - Time Time Spent with patient: Less than 15 minutes Medications reviewed and adjusted accordingly: Yes Anticipated discharge: Home Anticipated DC Timeframe: within 72 hours - Plan Summary Plan Summary: CT today for possible further drainage. anticipate DC soon
[2020-02-06] MEDS: DOXYCYCLINE HYCLATE 100 MG in DEXTROSE 5%-WATER 250 ML IV SCH ×2 (09:31→23:06)
[2020-02-06] MEDS: DOCUSATE SODIUM 100 MG CAPSULE PO SCH ×3 (09:33→17:34)
[2020-02-06 11:35] LABS: PATH REVIEW PATHOLOGIST REVIEWED
--- NOTE | 2020-02-06 12:39 | RADIOLOGY REPORT (SQ) ---
EXAM DESCRIPTION: CT ABD/PELVIS WITH IV ORAL IMAGES COMPLETED DATE/TIME: 02/06/2020 11:44 am REASON FOR STUDY: followup on pelvic abcess, Please let [facility] COMPARISON: 02/03/2020 TECHNIQUE: CT scan of the abdomen and pelvis performed using helical scanning technique with dynamic intravenous contrast injection. No oral contrast. Images reviewed with lung, soft tissue, and bone windows. Reconstructed coronal and sagittal MPR images reviewed. Delayed images for evaluation of the urinary system also acquired. All images stored on PACS. All CT scanners at this facility use dose modulation, iterative reconstruction, and/or weight based d osing when appropriate to reduce radiation dose to as low as reasonably achievable (ALARA). [facility]: Dose Right [facility]: CareDose [facility]: Dose Right [facility]: Teradose 4D [facility]: [employer] CONTRAST TYPE AND DOSE: contrast/concentration: Isovue 350.00 mmol/ml; Total Contrast Delivered: 62. 0 ml; Total Saline Delivered: 25.3 ml RENAL FUNCTION: BUN 21, creatinine 1.3 RADIATION DOSE: CT Rad equipment meets quality standard of care and radiation dose reduction techniq ues were employed. CTDIvol: 5.0 - 6.1 mGy. DLP: 598 mGy-cm.. LIMITATIONS: None. FINDINGS: LOWER CHEST: Increasing bilateral pleural effusions there remains small. Persistent basil ar atelectasis and/or pneumonia. LIVER: Persistent perihepatic fluid. A focal air decreased attenuation in the right lobe along the f alciform ligament most likely represents focal fatty infiltration. SPLEEN: Persistent perisplenic fluid. No focal lesions. PANCREAS: No masses. No significant calcifications. No adjacent inflammation or peripancreatic fluid collections. Pancreatic duct not dilated. GALLBLADDER: No identified stones by CT criteria. No inflammatory changes to suggest cholecystitis. ADRENAL GLANDS: No significant masses or asymmetry. RIGHT KIDNEY AND URETER: No solid masses. No significant calcifications. No hydronephrosis or hyd roureter. LEFT KIDNEY AND URETER: No solid masses. No significant calcifications. No hydronephrosis or hydr oureter. AORTA AND VESSELS: No aneurysm. No dissection. Renal arteries, SMA, celiac without stenosis. RETROPERITONEUM: No retroperitoneal adenopathy, hemorrhage or masses. BOWEL AND PERITONEAL CAVITY: Multiple pockets of what appears to be loculated fluid collections inclu ding both lateral gutter is surrounding the tail the pancreas and at the aortic bifurcation. APPENDIX: Normal. PELVIS: Multiloculated lesion in the right and axilla possibly tubo-ovarian abscess. This measures 6 .3 x 4.9 cm. ABDOMINAL WALL: Subcutaneous edema. BONES: No significant or acute findings. OTHER: Right lower quadrant drain remains in place. The fluid collection previously noted at this si te has resolved. Pelvic abscess drainage catheter remains in place. Pelvic fluid collection previou sly described is no longer noted. IMPRESSION: 1. Persistent multiple pockets of low what appears to be loculated fluid including both the right and left lateral gutters, surrounding the pancreatic tail and at the level of the aortic bi furcation. Based on prior percutaneous drainage findings these may represent focal abscess. 2. Were the previously percutaneous drains were placed the fluid collections have resolved. 3. Stable hepatomegaly. 4. Stable multiloculated or septated right adnexal mass possibly tubo-ovarian abscess. No window is available for percutaneous drainage. 5. Persistent bilateral pleural effusions and basilar airspace disease atelectasis or pneumonia. Th e effusions have increased since prior study. TECHNICAL DOCUMENTATION: JOB ID: [id number] Quality ID # [id number]: Final reports with documentation of one or more dose reduction techniques (e.g., Au tomated exposure control, adjustment of the mA and/or kV according to patient size, use of iterative reconstruction technique) 2010 [employer]- All Rights Reserved Reading location - IP/workstation name: [email or web address]
--- NOTE | 2020-02-06 13:26 | PDOC PROGRESS REPORT ---
Subjective Progress Note for:: 02/06/20 Subjective:: RY GILES I is a 29 year old female, past medical history of chronic back pain on Percocet who came in the ED on January 31, 2020 due to left-sided pelvic pain fever and chills. She was found to have a tubo-ovarian abscess on US. She was started on clindamycin and gentamicin for antibiotics. Also given IV fluids. Creatinine when she was admitted was normal at 0.55. Repeat CMP today showed a creatinine of 3.55 from 1.55 yesterday. She continues to produce good amount of urine and denies any edema. Hospitalist service consulted for creatinine elevation. Patient underwent IR guided drainage of tubo-ovarian abscess. Antibiotics switched to cefoxitin, doxycycline, metronidazole. Clindamycin and gentamicin was stopped today. 02/04/20 She was seen and examined at bedside today. Reports that her abdominal pain has improved. She is producing good amount of urine. Denies any shortness of breath or edema. Appetite is fair, she complains of constipation. Creatinine down to 2.9 from 3.11 today. UO 1.7L 02/05/20. She was seen and examined at bedside. Minimal drainage on her drains. She is making urine adequately. Minimal pain, no BM yet. Crea today down to 1.8. Plan for repeat CT abdomen tomorrow to re assess abscess which should be ok since her creatinine has improved and she is adequately hydrated. 02/06/20. She was seen and examined at bedside. She was able to ambulate down the bullock, minimal pain. She received IV contrast for a repeat CT abdomen which showed persistent multiple pockets of loculated fluid including both the right and left lateral gutters surrounding the pancreatic tail at the level of the aortic bifurcation. Stable multiloculated or septated right adnexal mass possibly tubo-ovarian abscess no window is available for percutaneous drainage. Persistent bilateral pleural effusion and bibasilar airspace disease atelectasis or pneumonia. The effusions have increased since prior study. She is making good urine output and Crea has come down to 1.31. She is eager to go home. She remains afebrile with good appetite. Reason For Visit: TUBO OVARIAN ABSCESS,FEVER,TACHYCARDIA,LUKOCYTOSIS Physical Exam Vital Signs: Temp Pulse Resp BP Pulse Ox 98.2 F 68 16 105/58 L 99 11/02/20 08:36 02/06/20 08:00 02/06/20 08:00 02/06/20 08:00 02/06/20 08:00 Intake & Output 02/05/20 02/06/20 02/07/20 06:59 06:59 06:59 Intake Total 730 Output Total 3270 Balance -2540 Weight 52.8 kg General appearance: PRESENT: no acute distress, cooperative Head exam: PRESENT: atraumatic, normocephalic Eye exam: PRESENT: EOMI, PERRLA Mouth exam: PRESENT: moist Neck exam: PRESENT: full ROM Respiratory exam: PRESENT: decreased breath sounds, symmetrical, unlabored. ABSENT: rales, rhonchi, stridor Cardiovascular exam: PRESENT: RRR, +S2 Pulses: PRESENT: normal dorsalis pedis pul GI/Abdominal exam: PRESENT: distended, hypoactive bowel sounds, soft. ABSENT: rebound, tenderness Extremities exam: PRESENT: full ROM Musculoskeletal exam: PRESENT: full ROM Neurological exam: PRESENT: alert, altered, oriented to person, oriented to place, oriented to time, oriented to situation Psychiatric exam: PRESENT: normal mood Skin exam: PRESENT: normal color Results Laboratory Results: 02/06/20 05:59 02/06/20 05:59 02/06/20 02/06/20 05:59 05:59 WBC 14.1 H RBC 2.68 L Hgb 8.1 L Hct 23.4 L MCV 87 MCH 30.3 MCHC 34.8 RDW 13.4 Plt Count 499 H Seg Neutrophils % Not Reportable Sodium 133.8 L Potassium 3.3 L Chloride 100 Carbon Dioxide 23 Anion Gap 11 BUN 21 H Creatinine 1.31 H Est GFR ( Amer) 57 L Glucose 90 Calcium 8.2 L Total Bilirubin 0.5 AST 22 Alkaline Phosphatase 202 H Total Protein 5.2 L Albumin 2.2 L 01/31/20 21:30 Blood Blood Culture - Final NO GROWTH IN 5 DAYS 01/31/20 20:18 Blood Blood Culture - Final Peptostreptococcus Species Impressions: Chest X-Ray 01/31/20 18:53 IMPRESSION: 1. No significant interval changes since the prior examination dated 04/21/2015. No acute findings. Pelvis MRI 02/01/20 00:00 IMPRESSION: Multiple dilated luminal structures which cannot exclude abscesses. Potentially amenable to CT-guided drainage. Transvaginal US 02/01/20 00:00 IMPRESSION: Bilateral adnexal tubular structures are seen with low level internal echoes and septations. These may represent tubo-ovarian abscess or endometrioma associated with hematosalpinx. Interval follow-up is also recommended to exclude an underlying mass. This could be evaluated with MRI imaging. Renal Ultrasound 02/03/20 11:24 IMPRESSION: 1. Normal renal ultrasound. Probable bladder debris. 2. Free fluid in the pelvis, right upper quadrant and left lower quadrant. Retroperitoneal Abscess Drainage 02/03/20 13:00 IMPRESSION: Successful CT-guided placement of percutaneous drainage catheter is in the deep pelvic abscess and in the right lower quadrant abscess. There were no immediate complications. Abdomen/Pelvis CT 02/06/20 11:00 IMPRESSION: 1. Persistent multiple pockets of low what appears to be loculated fluid including both the right and left lateral gutters, surrounding the pancreatic tail and at the level of the aortic bifurcation. Based on prior percutaneous drainage findings these may represent focal abscess. 2. Were the previously percutaneous drains were placed the fluid collections have resolved. 3. Stable hepatomegaly. 4. Stable multiloculated or septated right adnexal mass possibly tubo-ovarian abscess. No window is available for percutaneous drainage. 5. Persistent bilateral pleural effusions and basilar airspace disease atelectasis or pneumonia. The effusions have increased since prior study. Assessment and Plan - Diagnosis (1) KILEY (acute kidney injury) Is this a current diagnosis for this admission?: Yes Plan: -Improved. Crea 0.55>1.55>3.5>2.8>1.8>1.31 -Nonoliguric -no signs of uremia -Urinalysis showed positive nitrite and positive leukocyte esterase, no proteinuria -Renal ultrasound was normal besides the free fluid in the pelvis, right upper quadrant and left lower quadrant consistent with tubo-ovarian abscess -Fena 1.6 consistent with intrinsic renal cause of KILEY -Recommend to stop ibuprofen -would continue current IV fuids, encourage PO fluid intake -Continue antibiotics for abscess and UTI - avoid nephrotoxic meds, renally dose medications - suggest to avoid if possible nephrotoxic agent such as contrast as she is still recovering from KILEY - Strict IO (2) Bilateral pleural effusion Is this a current diagnosis for this admission?: Yes Plan: - likely reactive from ongoing intraperitoneal infection - if she desaturates or becomes short of breath suggest to stop IV fluids and CT of chest plain - any Pneumonia will be covered by current abx (3) Right tubo-ovarian mass Is this a current diagnosis for this admission?: Yes Plan: Status post IR drainage of abscess -Continue antibiotics -management per Gyne service - Plan Summary Summary: Hospitalist service consulted due to elevated creatinine of 3.11 from 0.55. Patient has ongoing infection from a tubo-ovarian abscess, also has UTI. She received ibuprofen and gentamicin which can affect creatinine. Ibuprofen stopped and gentamicin switched to another class of antibiotics. She is nonoliguric, with no signs of uremia. Continue daily CMP. Avoid nephrotoxic agents. - Time Time Spent with patient: 25-34 minutes Anticipated Discharge Disposition: Home, Self Care Anticipated Discharge Timeframe: to be determined
[2020-02-06] MEDS: RINGERS SOLUTION,LACTATED 1,000 ML IV PRN (17:22)
--- NOTE | 2020-02-06 20:21 | PDOC CONSULTATION ---
Consultation Consult Date: 02/06/20 Provider Consulted: SURGICAL SURGICALIST Consult reason:: intra-abdominal abscess History of Present Illness Admission Date/PCP: 01/31/20 22:35 ERICH TRUJILLO MD History of Present Illness: RY GILES I is a 29 year old female seen in consultation at the request of the [employer] service. This is a patient who presented with a large pelvic abscess. Her symptoms spanned approximately 2 months. She reports left-sided abdominal pain that slowly progressed and worsened. Her pain spread into her right lower quadrant and pelvis. On presentation, she reports severe abdominal pain, fevers, chills, nausea, and vomiting. The patient had CT-guided drains placed, revealing approximately 300 cc of purulent material drained from the pelvis. The patient is growing Peptostreptococcus. After drainage, the patient reports that her symptoms have almost completely resolved. She has no abdominal pain, nausea, fevers, or chills. She is having bowel movements and tolerating a regular diet. She reports minimal output from her drains. Past Medical History Cardiac Medical History: Reports: None Pulmonary Medical History: Reports: None EENT Medical History: Reports: None Neurological Medical History: Reports: None Endocrine Medical History: Reports: None Renal/ Medical History: Reports: None Malignancy Medical History: Reports: None GI Medical History: Reports: None Musculoskeltal Medical History: Reports: Other - Chronic back pain Psychiatric Medical History: Denies: Depression Traumatic Medical History: Reports: None Hematology: Reports: None Past Surgical History Past Surgical History: Reports: Other - Implantation of IUD, still currently in place. Social History Lives with: Family Smoking Status: Current Every Day Smoker Cigarettes Packs Per Day: 1 Hx Recreational Drug Use: No Drugs: None Family History Family History: Reviewed & Not Pertinent, DM, Hypertension Parental Family History Reviewed: Yes Children Family History Reviewed: Yes Sibling(s) Family History Reviewed.: Yes Medication/Allergy Home Medications: Amox Tr/Potassium Clavulanate [Augmentin 875-125 mg Tablet] 1 tab PO BID #20 tablet 03/09/13 Methocarbamol [Robaxin 750 mg Tablet] 750 mg PO ASDIR PRN #40 tablet 06/26/13 Oxycodone HCl/Acetaminophen [Percocet 5-325 mg Tablet] 1 tab PO Q4H PRN #25 tablet 06/26/13 Promethazine HCl [Phenergan 25 mg Tablet] 1 - 2 tab PO Q6H PRN #15 tablet 06/26/13 Ciprofloxacin HCl [Cipro 500 mg Tablet] 500 mg PO BID #20 tablet 04/21/15 Oxycodone HCl/Acetaminophen [Percocet 5-325 mg Tablet] 1 - 2 tab PO ASDIR PRN #25 tablet 04/21/15 Promethazine HCl [Phenergan 25 mg Tablet] 25 mg PO Q6H PRN #15 tablet 04/21/15 Ibuprofen [Motrin 600 mg Tablet] 600 mg PO Q8HP PRN #21 tablet 03/15/18 Phenazopyridine HCl [Pyridium 200 mg Tablet] 200 mg PO TID #20 tablet 03/15/18 Sulfamethoxazole/Trimethoprim [Bactrim Ds Tablet] 1 each PO BID #20 tablet 03/15/18 Docusate Sodium [Colace 100 mg Capsule] 100 mg PO BID #30 capsule 01/26/20 Polyethylene Glycol 3350 [Miralax] 1 cap PO BID PRN #527 powder 01/26/20 Allergies/Adverse Reactions: No Known Allergies Allergy (Verified 03/15/18 16:49) Review of Systems Constitutional: ABSENT: anorexia, chills, fatigue Eyes: ABSENT: visual disturbances Ears: ABSENT: hearing changes Nose, Mouth, and Throat: ABSENT: sore throat Cardiovascular: ABSENT: chest pain Respiratory: ABSENT: cough Gastrointestinal: ABSENT: abdominal pain, bloating Genitourinary: ABSENT: dysuria Musculoskeletal: ABSENT: back pain Integumentary: ABSENT: pruritus, rash Neurological: ABSENT: confusion, convulsions, dizziness Psychiatric: ABSENT: anxiety, depression Endocrine: ABSENT: cold intolerance, heat intolerance Hematologic/Lymphatic: ABSENT: easy bleeding, easy bruising Physical Exam Vital Signs: Temp Pulse Resp BP Pulse Ox 98.1 F 93 20 124/70 99 02/06/20 19:11 02/06/20 19:11 02/06/20 19:11 02/06/20 19:11 02/06/20 19:11 Intake & Output 02/05/20 02/06/20 02/07/20 06:59 06:59 06:59 Intake Total 730 590 Output Total 3270 635 Balance -2540 -45 Weight 52.8 kg General appearance: PRESENT: no acute distress, cooperative Head exam: PRESENT: atraumatic, normocephalic Eye exam: PRESENT: EOMI, PERRLA. ABSENT: scleral icterus Mouth exam: PRESENT: moist Neck exam: ABSENT: meningismus, tenderness, thyromegaly, tracheal deviation Respiratory exam: PRESENT: unlabored. ABSENT: tachypnea, wheezes Cardiovascular exam: ABSENT: tachycardia GI/Abdominal exam: PRESENT: soft, other - Inferior drain with serous fluid. Posterior drain with milky/turbid fluid.. ABSENT: distended, tenderness Rectal exam: PRESENT: deferred Extremities exam: ABSENT: clubbing Musculoskeletal exam: ABSENT: deformity Neurological exam: PRESENT: alert, awake, oriented to person, oriented to place, oriented to time, oriented to situation Psychiatric exam: ABSENT: agitated, anxious, depressed Focused psych exam: ABSENT: delusional Skin exam: ABSENT: cyanosis, erythema, jaundice Results Laboratory Results: 02/06/20 05:59 02/06/20 05:59 02/06/20 02/06/20 05:59 05:59 WBC 14.1 H RBC 2.68 L Hgb 8.1 L Hct 23.4 L MCV 87 MCH 30.3 MCHC 34.8 RDW 13.4 Plt Count 499 H Seg Neutrophils % Not Reportable Sodium 133.8 L Potassium 3.3 L Chloride 100 Carbon Dioxide 23 Anion Gap 11 BUN 21 H Creatinine 1.31 H Est GFR ( Amer) 57 L Glucose 90 Calcium 8.2 L Total Bilirubin 0.5 AST 22 Alkaline Phosphatase 202 H Total Protein 5.2 L Albumin 2.2 L 01/31/20 21:30 Blood Blood Culture - Final NO GROWTH IN 5 DAYS Impressions: Chest X-Ray 01/31/20 18:53 IMPRESSION: 1. No significant interval changes since the prior examination dated 04/21/2015. No acute findings. Pelvis MRI 02/01/20 00:00 IMPRESSION: Multiple dilated luminal structures which cannot exclude abscesses. Potentially amenable to CT-guided drainage. Transvaginal US 02/01/20 00:00 IMPRESSION: Bilateral adnexal tubular structures are seen with low level internal echoes and septations. These may represent tubo-ovarian abscess or endometrioma associated with hematosalpinx. Interval follow-up is also recommended to exclude an underlying mass. This could be evaluated with MRI imaging. Renal Ultrasound 02/03/20 11:24 IMPRESSION: 1. Normal renal ultrasound. Probable bladder debris. 2. Free fluid in the pelvis, right upper quadrant and left lower quadrant. Retroperitoneal Abscess Drainage 02/03/20 13:00 IMPRESSION: Successful CT-guided placement of percutaneous drainage catheter is in the deep pelvic abscess and in the right lower quadrant abscess. There were no immediate complications. Abdomen/Pelvis CT 02/06/20 11:00 IMPRESSION: 1. Persistent multiple pockets of low what appears to be loculated fluid including both the right and left lateral gutters, surrounding the pancreatic tail and at the level of the aortic bifurcation. Based on prior percutaneous drainage findings these may represent focal abscess. 2. Were the previously percutaneous drains were placed the fluid collections have resolved. 3. Stable hepatomegaly. 4. Stable multiloculated or septated right adnexal mass possibly tubo-ovarian abscess. No window is available for percutaneous drainage. 5. Persistent bilateral pleural effusions and basilar airspace disease atelectasis or pneumonia. The effusions have increased since prior study. Assessment & Plan - Diagnosis (1) Intra-abdominal abscess Is this a current diagnosis for this admission?: Yes - Plan Summary Plan Summary: 29-year-old female status post percutaneous drainage of a large pelvic abscess. Currently, it is felt that this represents a tubo-ovarian abscess. I was asked to see the patient for further management, and assessment of the appendix. I do not believe her symptoms and hospital course have been consistent with acute appendicitis (however it is not impossible). Currently, I believe that the chosen treatment course is the most appropriate. Continue with percutaneous drains. Continue with antibiotics. At this time, she is pain-free and tole rating a regular diet. She is okay for discharge from a general surgery standpoint. I will reassess the patient again in my office in 1 to 2 weeks. I will have the nursing staff swap the large accordion drains for small GERRY suction bulbs. There is no surgical intervention indicated at present. I have discussed this at length with the patient. She is in agreement with the plan.
[2020-02-07] MEDS: OXYCODONE-ACETAMINOPHEN 5-325 MG TABLET PO PRN (03:08)
[2020-02-07] MEDS: CEFOXITIN SODIUM 2 GM in DEXTROSE 5%-WATER 100 ML IV SCH (05:23)
[2020-02-07] MEDS: RINGERS SOLUTION,LACTATED 1,000 ML IV PRN (08:08)
[2020-02-07] MEDS: METRONIDAZOLE 500 MG/NS RTU 500 MG/100 ML RTUPB IV SCH (08:08)
[2020-02-07 08:48] LABS: ANION GAP 9 (5-19); BLOOD UREA NITROGEN 17 mg/dL (7-20); CALCIUM 8.1 mg/dL (8.4-10.2); CARBON DIOXIDE 26 mmol/L (22-30); CHLORIDE 100 mmol/L (98-107); GLUCOSE 96 mg/dL (75-110); POTASSIUM 3.1 mmol/L (3.6-5.0)
[2020-02-07 09:23] LABS: HEMATOCRIT 23.3 % (36.0-47.0); HEMOGLOBIN 8.2 g/dL (12.0-15.5); MEAN CORPUSCULAR HEMOGLOBIN 30.4 pg (27.0-33.4); MEAN CORPUSCULAR HGB CONC 35.1 g/dL (32.0-36.0); MEAN CORPUSCULAR VOLUME 86 fl (80-97); PLATELET COUNT 506 10^3/uL (150-450); RED BLOOD COUNT 2.69 10^6/uL (3.72-5.28); RED CELL DISTRIBUTION WIDTH 13.2 % (11.5-14.0); WHITE BLOOD COUNT 17.9 10^3/uL (4.0-10.5)
[2020-02-07] MEDS: DOXYCYCLINE HYCLATE 100 MG in DEXTROSE 5%-WATER 250 ML IV SCH (09:47)
[2020-02-07] MEDS: DOCUSATE SODIUM 100 MG CAPSULE PO SCH (10:29)
[2020-02-07] MEDS ORDERED: POTASSIUM CHLORIDE 10 MEQ TABLET.ER PO ONE (10:30)
--- NOTE | 2020-02-07 10:35 | PDOC DISCHARGE SUMMARY ---
Impression - Admit/DC Date/PCP Admission Date/Primary Care Provider: 01/31/20 22:35 ERICH TRUJILLO MD Discharge Date: 02/07/20 - Assessment Summary: Hospitalist service consulted due to elevated creatinine of 3.11 from 0.55. Patient has ongoing infection from a tubo-ovarian abscess, also has UTI. She received ibuprofen and gentamicin which can affect creatinine. Ibuprofen stopped and gentamicin switched to another class of antibiotics. She is nonoliguric, with no signs of uremia. Continue daily CMP. Avoid nephrotoxic agents. 02/07/2020: Pt seen today and is feeling much better. Is anxious to discharge due to family concerns with her son. I discussed with her regarding her WBC bump back up to 17. She strongly desires to discharge and states that she is otherwise asymptomatic. I discussed with hospitalist service and Ms. Hankins and I tend to agree that WBC should not be sole factor for continued hospitalization as the patient is clinically much improved. I will discharge home with close follow up at both our office and [facility]. She has instructions on how to care for GERRY drains. We will remove those later in the week as long as output remains minimal. - Additional Information Resuscitation Status: Full Code Discharge Diet: As Tolerated Discharge Activity: Balance Activity w/Rest, Pelvic Rest, No tub bath Referrals: ERICH TRUJILLO MD [Primary Care Provider] - Follow up as needed Prescriptions: Docusate Sodium [Colace 100 mg Capsule] 100 mg PO BID #60 capsule Doxycycline Hyclate 100 mg PO BID #60 tablet. Metronidazole [Flagyl 500 mg Tablet] 500 mg PO TID 30 Days #90 tablet Cephalexin Monohydrate [Keflex 500 mg Capsule] 500 mg PO QID #120 capsule Home Medications: Amox Tr/Potassium Clavulanate [Augmentin 875-125 mg Tablet] 1 tab PO BID #20 tablet 03/09/13 Methocarbamol [Robaxin 750 mg Tablet] 750 mg PO ASDIR PRN #40 tablet 06/26/13 Oxycodone HCl/Acetaminophen [Percocet 5-325 mg Tablet] 1 tab PO Q4H PRN #25 tablet 06/26/13 Promethazine HCl [Phenergan 25 mg Tablet] 1 - 2 tab PO Q6H PRN #15 tablet 06/26/13 Ciprofloxacin HCl [Cipro 500 mg Tablet] 500 mg PO BID #20 tablet 04/21/15 Oxycodone HCl/Acetaminophen [Percocet 5-325 mg Tablet] 1 - 2 tab PO ASDIR PRN #25 tablet 04/21/15 Promethazine HCl [Phenergan 25 mg Tablet] 25 mg PO Q6H PRN #15 tablet 04/21/15 Ibuprofen [Motrin 600 mg Tablet] 600 mg PO Q8HP PRN #21 tablet 03/15/18 Phenazopyridine HCl [Pyridium 200 mg Tablet] 200 mg PO TID #20 tablet 03/15/18 Sulfamethoxazole/Trimethoprim [Bactrim Ds Tablet] 1 each PO BID #20 tablet 03/15/18 Docusate Sodium [Colace 100 mg Capsule] 100 mg PO BID #30 capsule 01/26/20 Polyethylene Glycol 3350 [Miralax] 1 cap PO BID PRN #527 powder 01/26/20 Cephalexin Monohydrate [Keflex 500 mg Capsule] 500 mg PO QID #120 capsule 02/07/20 Docusate Sodium [Colace 100 mg Capsule] 100 mg PO BID #60 capsule 02/07/20 Doxycycline Hyclate 100 mg PO BID #60 tablet. 02/07/20 Metronidazole [Flagyl 500 mg Tablet] 500 mg PO TID 30 Days #90 tablet 02/07/20 History of Present Illiness History of Present Illness: RY GILES I is a 29 year old female Physical Exam - Physical Exam Vital Signs: Temp Pulse Resp BP Pulse Ox 98.1 F 78 16 121/75 100 02/07/20 08:00 02/07/20 08:00 02/07/20 08:00 02/07/20 08:00 02/07/20 08:00 Intake & Output 02/06/20 02/07/20 02/08/20 06:59 06:59 06:59 Intake Total 730 2180 100 Output Total 3270 635 Balance -2540 1545 100 Weight 52.8 kg 51.6 kg 51.6 kg Results Laboratory Results: WBC 17.9 10^3/uL (4.0-10.5) H 02/07/20 08:16 RBC 2.69 10^6/uL (3.72-5.28) L 02/07/20 08:16 Hgb 8.2 g/dL (12.0-15.5) L 02/07/20 08:16 Hct 23.3 % (36.0-47.0) L 02/07/20 08:16 MCV 86 fl (80-97) 02/07/20 08:16 MCH 30.4 pg (27.0-33.4) 02/07/20 08:16 MCHC 35.1 g/dL (32.0-36.0) 02/07/20 08:16 RDW 13.2 % (11.5-14.0) 02/07/20 08:16 Plt Count 506 10^3/uL (150-450) H 02/07/20 08:16 Lymph % (Auto) Not Reportable 02/06/20 05:59 [place] % (Auto) Not Reportable 02/06/20 05:59 Eos % (Auto) Not Reportable 02/06/20 05:59 Baso % (Auto) Not Reportable 02/06/20 05:59 Absolute Neuts (auto) Not Reportable 02/06/20 05:59 Absolute Lymphs (auto) Not Reportable 02/06/20 05:59 Absolute Monos (auto) Not Reportable 02/06/20 05:59 Absolute Eos (auto) Not Reportable 02/06/20 05:59 Absolute Basos (auto) Not Reportable 02/06/20 05:59 Total Counted 100 02/06/20 05:59 Seg Neutrophils % Not Reportable 02/06/20 05:59 Seg Neuts % (Manual) 70 % (42-78) 02/06/20 05:59 Band Neutrophils % 2 % (3-5) L 02/06/20 05:59 Lymphocytes % (Manual) 13 % (13-45) 02/06/20 05:59 Monocytes % (Manual) 5 % (3-13) 02/06/20 05:59 Eosinophils % (Manual) 2 % (0-6) 02/06/20 05:59 Basophils % (Manual) 0 % (0-2) 02/06/20 05:59 Metamyelocytes % 5 % (0-1) H 02/06/20 05:59 Myelocytes % 2 % (0) H 02/06/20 05:59 Promyelocytes % 1 % (0) H 02/06/20 05:59 Abs Neuts (Manual) 11.3 10^3/uL (1.7-8.2) H 02/06/20 05:59 Abs Lymphs (Manual) 1.8 10^3/uL (0.5-4.7) 02/06/20 05:59 Abs Monocytes (Manual) 0.7 10^3/uL (0.1-1.4) 02/06/20 05:59 Absolute Eos (Manual) 0.3 10^3/uL (0.0-0.6) 02/06/20 05:59 Abs Basophils (Manual) 0.0 10^3/uL (0.0-0.2) 02/06/20 05:59 Clumped Platelets PRESENT 02/06/20 05:59 Platelet Comment INCREASED 02/06/20 05:59 RBC Morph Comment NORMO-CYTIC/CHROMIC 01/31/20 20:18 PT 17.2 SEC (11.4-15.4) H 02/03/20 10:28 INR 1.39 02/03/20 10:28 APTT 42.3 SEC (23.5-35.8) H 02/03/20 10:28 VBG pH 7.40 (7.30-7.42) 01/31/20 20:18 VBG pCO2 46.4 mmHg (35-63) 01/31/20 20:18 VBG HCO3 28.1 mmol/L (20-32) 01/31/20 20:18 VBG Base Excess 2.7 mmol/L 01/31/20 20:18 Sodium 135.4 mmol/L (137-145) L 02/07/20 08:16 Potassium 3.1 mmol/L (3.6-5.0) L 02/07/20 08:16 Chloride 100 mmol/L (98-107) 02/07/20 08:16 Carbon Dioxide 26 mmol/L (22-30) 02/07/20 08:16 Anion Gap 9 (5-19) 02/07/20 08:16 BUN 17 mg/dL (7-20) 02/07/20 08:16 Creatinine 0.95 mg/dL (0.52-1.25) 02/07/20 08:16 Est GFR ( Amer) > 60 (>60) 02/07/20 08:16 Est GFR (MDRD) Non-Af > 60 (>60) 02/07/20 08:16 Glucose 96 mg/dL (75-110) 02/07/20 08:16 POC Glucose 85 mg/dL (70-110) 02/03/20 20:45 Lactic Acid 1.3 mmol/L (0.7-2.1) 02/01/20 11:05 Calcium 8.1 mg/dL (8.4-10.2) L 02/07/20 08:16 Total Bilirubin 0.5 mg/dL (0.2-1.3) 02/06/20 05:59 Direct Bilirubin 0.5 mg/dL (0.0-0.4) H 02/06/20 05:59 Neonat Total Bilirubin Not Reportable 02/06/20 05:59 Neonat Direct Bilirubin Not Reportable 02/06/20 05:59 Neonat Indirect Bili Not Reportable 02/06/20 05:59 AST 22 U/L (14-36) 02/06/20 05:59 ALT < 4 U/L (<35) 02/06/20 05:59 Alkaline Phosphatase 202 U/L (38-126) H 02/06/20 05:59 Total Protein 5.2 g/dL (6.3-8.2) L 02/06/20 05:59 Albumin 2.2 g/dL (3.5-5.0) L 02/06/20 05:59 Serum HCG, Qual NEGATIVE (NEGATIVE) 01/31/20 20:18 Urine Color YELLOW 01/31/20 21:14 Urine Appearance CLEAR 01/31/20 21:14 Urine pH 7.0 (5.0-9.0) 01/31/20 21:14 Ur Specific [place] 1.005 01/31/20 21:14 Urine Protein NEGATIVE mg/dL (NEGATIVE) 01/31/20 21:14 Urine Glucose (UA) NEGATIVE mg/dL (NEGATIVE) 01/31/20 21:14 Urine Ketones NEGATIVE mg/dL (NEGATIVE) 01/31/20 21:14 Urine Blood SMALL (NEGATIVE) H 01/31/20 21:14 Urine Nitrite POSITIVE (NEGATIVE) H 01/31/20 21:14 Urine Bilirubin NEGATIVE (NEGATIVE) 01/31/20 21:14 Urine Urobilinogen NEGATIVE mg/dL (<2.0) 01/31/20 21:14 Ur Leukocyte Esterase SMALL (NEGATIVE) H 01/31/20 21:14 Urine WBC (Auto) 11 /HPF 01/31/20 21:14 Urine RBC (Auto) 0 /HPF 01/31/20 21:14 Urine Bacteria (Auto) TRACE /HPF 01/31/20 21:14 Squamous Epi Cells Auto <1 /HPF 01/31/20 21:14 Urine Mucus (Auto) RARE /LPF 01/31/20 21:14 Urine Creatinine 52.4 mg/dL (16-327) 02/03/20 02:30 Urine Sodium 35 mmol/L (30-90) 02/03/20 02:30 Urine Ascorbic Acid NEGATIVE (NEGATIVE) 01/31/20 21:14 Epi Cells (Wet Prep) 3+ EPITHELIALS SEEN 01/31/20 21:14 Bacteria (Wet Prep) 4+ BACTERIA SEEN 01/31/20 21:14 Trichomonas (Wet Prep) NO TRICHOMONAS SEEN 01/31/20 21:14 Vaginal WBC 4+ WBCS SEEN 01/31/20 21:14 Vaginal Yeast NO YEAST SEEN 01/31/20 21:14 Dose Start Time 200802/02/20 21:45 Dose Stop Time 211502/02/20 21:45 Time Trough Drawn 1028 02/03/20 10:28 Time Peak Drawn 214402/02/20 21:45 Gentamicin Peak 11.9 ug/mL (5.0-10.0) H* 02/02/20 21:45 Gentamicin Trough 9.4 ug/mL (<2.0) H 02/03/20 10:28 Chlamydia DNA (PCR) NOT DETECTED (NOT DETECT) 01/31/20 21:14 HIV 1&2 Antibody NEGATIVE (NEGATIVE) 02/01/20 11:05 N.gonorrhoeae DNA (PCR) NOT DETECTED (NOT DETECT) 01/31/20 21:14 Slides for Path Review PATHOLOGIST REVIEWED 02/06/20 05:59 Impressions: Chest X-Ray 01/31/20 18:53 IMPRESSION: 1. No significant interval changes since the prior examination dated 04/21/2015. No acute findings. Transvaginal US 01/31/20 18:55 IMPRESSION: Right complex adnexal mass could be secondary to a tubo-ovarian abscess. Other etiologies are not excluded. Recommend follow-up. Pelvis MRI 02/01/20 00:00 IMPRESSION: Multiple dilated luminal structures which cannot exclude abscesses. Potentially amenable to CT-guided drainage. Transvaginal US 02/01/20 00:00 IMPRESSION: Bilateral adnexal tubular structures are seen with low level internal echoes and septations. These may represent tubo-ovarian abscess or endometrioma associated with hematosalpinx. Interval follow-up is also recommended to exclude an underlying mass. This could be evaluated with MRI imaging. Renal Ultrasound 02/03/20 11:24 IMPRESSION: 1. Normal renal ultrasound. Probable bladder debris. 2. Free fluid in the pelvis, right upper quadrant and left lower quadrant. Abdomen/Pelvis CT 02/03/20 13:00 IMPRESSION: 1. Basilar atelectasis and small pleural effusions. 2. Focal fluid collections in the pelvis anterior to the rectum and posterior the uterus is 2nd collection in the right lower quadrant. 3. Small volume ascites. 4. Thickening of the cecal wall. The appendix is not identified. Retroperitoneal Abscess Drainage 02/03/20 13:00 IMPRESSION: Successful CT-guided placement of percutaneous drainage catheter is in the deep pelvic abscess and in the right lower quadrant abscess. There were no immediate complications. Abdomen/Pelvis CT 02/06/20 11:00 IMPRESSION: 1. Persistent multiple pockets of low what appears to be loculated fluid including both the right and left lateral gutters, surrounding the pancreatic tail and at the level of the aortic bifurcation. Based on prior percutaneous drainage findings these may represent focal abscess. 2. Were the previously percutaneous drains were placed the fluid collections have resolved. 3. Stable hepatomegaly. 4. Stable multiloculated or septated right adnexal mass possibly tubo-ovarian abscess. No window is available for percutaneous drainage. 5. Persistent bilateral pleural effusions and basilar airspace disease atelectasis or pneumonia. The effusions have increased since prior study. Stroke Is this a Stroke Patient?: No Acute Heart Failure Is this a Heart Failure Patient?: No
[2020-02-07 12:25] VITALS: BP 121/75
== END 2020-02-07 13:04 | disposition home or self-care (01) | DRG 758 ==
LOC: ER 18:30 → EH 22:35 → 2N 23:58 → EH 23:58 → 2N 02-02 09:31
PROVIDERS: ADMIT Obstetrics & Gynecology Gynecology; ATTEND Obstetrics & Gynecology Gynecology
PROC: 0W9J30Z Drainage of Pelvic Cavity with Drainage Device, Percutaneous Approach (ICD-10-PCS; principal; 2020-02-03)
DX: N70.92 Oophoritis, unspecified (principal); N17.9 Acute kidney failure, unspecified; J90 Pleural effusion, not elsewhere classified; N30.00 Acute cystitis without hematuria; D72.829 Elevated white blood cell count, unspecified; M54.9 Dorsalgia, unspecified; G89.29 Other chronic pain; F17.210 Nicotine dependence, cigarettes, uncomplicated
CPT/HCPCS: 36415; 49406; 71046; 72197; 74176; 74177; 76775; 76830; 80048; 80053; 80170; 81001; 82565; 82570; 82803; 82962; 83605; 84300; 84703; 85025; 85027; 85610; 85730; 86701; 87040; 87070; 87075; 87077; 87205; 87210; 87491; 87591; 93005; 93010; 93976; 94799; 96365; 96368; 96375; 99285; A9576; C1713; C1729; C1769; C1894; J0290; J0694; J0696; J1580; J1885; J2250; J2270; J3010; J3490; J7030; J7040; J7050; J7060; J7120; J7121

== ENCOUNTER → 2020-02-20 | Outpatient (CLI) | payer MEDICAID ==
--- NOTE | 2020-02-20 16:19 | RADIOLOGY REPORT (SQ) ---
EXAM DESCRIPTION: CT ABD/PELVIS WITH IV ORAL IMAGES COMPLETED DATE/TIME: 02/20/2020 3:37 pm REASON FOR STUDY: (N73.8)OTHER SPECIFIED FEMALE PELVIC INFLAMMATORY DISEASES N73.8 OTHER SPECIFIED FEMALE PELVIC INFLAMMATORY DISEASES COMPARISON: CT of the abdomen and pelvis with contrast from 02/06/2020. TECHNIQUE: CT scan of the abdomen and pelvis performed using helical scanning technique with dynamic intravenous contrast injection. No oral contrast. Images reviewed with lung, soft tissue, and bone windows. Reconstructed coronal and sagittal MPR images reviewed. Delayed images for evaluation of the urinary system also acquired. All images stored on PACS. All CT scanners at this facility use dose modulation, iterative reconstruction, and/or weight based d osing when appropriate to reduce radiation dose to as low as reasonably achievable (ALARA). [facility]: Dose Right [facility]: CareDose [facility]: Dose Right [facility]: Teradose 4D [facility]: [employer] CONTRAST TYPE AND DOSE: Contrast/concentration: Isovue 350.00 mmol/ml; Total Contrast Delivered: 67. 0 ml; Total Saline Delivered: 40.0 ml RENAL FUNCTION: GFR > 60. RADIATION DOSE: CT Rad equipment meets quality standard of care and radiation dose reduction techniq ues were employed. CTDIvol: 2.5 - 2.5 mGy. DLP: 269 mGy-cm. LIMITATIONS: None. FINDINGS: LOWER CHEST: The previous small bilateral pleural effusions and areas of subsegmental atel ectasis in the lower lobes have resolved. LIVER: The morphology of the liver is noncirrhotic. The portal veins are patent. SPLEEN: No splenomegaly or splenic mass. PANCREAS: No acute gross abnormality of the pancreas. GALLBLADDER: No acute gross abnormality of the gallbladder. ADRENAL GLANDS: No mass or asymmetry. RIGHT KIDNEY AND URETER: No solid mass, hydronephrosis, nephrolithiasis, hydroureter or ureterolithia sis. LEFT KIDNEY AND URETER: No solid mass, hydronephrosis, nephrolithiasis, hydroureter ureterolithiasis. AORTA AND VESSELS: No aneurysm of the abdominal aorta RETROPERITONEUM: No retroperitoneal adenopathy, hemorrhage or mass. BOWEL AND PERITONEAL CAVITY: The amount of loculated fluid that extended from the right perihepatic s pace into the right lower quadrant on the prior CT has decreased and at the time of the scan there is a residual fluid collection in the area that extends from the undersurface of the right hepatic lobe into the right lower quadrant and measures 13 mm in transverse diameter, 18 mm and AP diameter and 6 .6 cm in craniocaudal diameter. The amount of loculated fluid on the left side of the abdomen has also decreased and the time of the scan there is a residual fluid collection anterior to the sigmoid colon (images 34-38 of series 601) that measures 10 mm in transverse and 4.1 cm in transverse diameter. The loculated fluid collections in the central abdomen in between loops of jejunum have also decrease d in size ; for reference the inferior collection has a maximum diameter of 3.4 cm compared to 6 cm o n the prior CT (image 57 of series 2) and the superior collection has a maximum diameter of 2.3 cm co mpared to 4.7 cm on the prior CT. There is a small amount of residual loculated fluid anterior and superior to the urinary bladder that has a maximum diameter 5.1 cm (image 30 of series 601). There is no bowel obstruction, pneumatosis or free intraperitoneal gas. APPENDIX: Unable to identify the appendix. PELVIS: The septated cystic lesion in the right adnexum (image 67 of series 2) has decreased in size and measures 4.5 x 4.1 cm compared to 6.3 x 5 cm on the prior CT. There is an IUD in place. The uri nary bladder is partially distended. ABDOMINAL WALL: No abdominal wall mass or hernia. BONES: No fracture or osseous lesion. OTHER: No other findings. IMPRESSION: As detailed above, the amount of loculated fluid in the abdomen has significantly decrea sed since the CT from 02/06/2020. The residual fluid collections that remain are not amenable to perc utaneous drainage due to their size and location. The septated cystic lesion in the right adnexum (i mage 67 of series 2) has also decreased in size and it measures 4.5 x 4.1 cm compared to 6.3 x 5 cm o n the prior CT. This lesion is also not amenable to percutaneous drainage. COMMENT: This report was called to GUALBERTO ROSSI MD at 16:09 on 02/20/2020. TECHNICAL DOCUMENTATION: JOB ID: [id number] Quality ID # [id number]: Final reports with documentation of one or more dose reduction techniques (e.g., Au tomated exposure control, adjustment of the mA and/or kV according to patient size, use of iterative reconstruction technique) 2010 [facility] [employer]- All Rights Reserved Reading location - IP/workstation name: [email or web address]
== END ==
LOC: RAD 12:33
PROVIDERS: ATTEND Student in an Organized Health Care Education/Training Program
DX: N83.291 Other ovarian cyst, right side (principal); N73.8 Other specified female pelvic inflammatory diseases
CPT/HCPCS: 74177